=== PATIENT | female | born 1945 | race African-American/Black ===

== ENCOUNTER 2018-11-03 00:32 | Emergency (ER) | payer OTHER ==
[~2018-11-03] VITALS: Ht 165.1 cm; Wt 120.2 kg
[2018-11-03] MEDS ORDERED: CARVEDILOL12.5 MG PO (01:09)
[2018-11-03] MEDS ORDERED: ZOLOFT50 MG PO (01:09)
[2018-11-03] MEDS ORDERED: NYSTATIN1 EA10 TOP (01:11)
[2018-11-03] MEDS ORDERED: CLONIDINE0.1 PO (01:12)
[2018-11-03] MEDS ORDERED: LIPITOR40 MG PO (01:12)
[2018-11-03] MEDS ORDERED: AMLODIPINE BESY10 MG PO (01:13)
[2018-11-03] MEDS ORDERED: LASIX 40 MG TAB40 M2 PO (01:13)
[2018-11-03] MEDS ORDERED: PROZAC10 MG PO (01:14)
[2018-11-03] MEDS ORDERED: LISINOPRIL40 MG PO (01:14)
[2018-11-03 01:15] LABS: ABSOLUTE NEUTROPHILS 2.9 thou/uL (1.4-8.2); BASOPHILS 1.2 % (0.0-2.0); HEMATOCRIT 32.8 % (37.0-47.0); HEMOGLOBIN 10.4 gm/dL (12.0-15.0); LYMPHOCYTES 29.9 % (24.0-44.0); MCH 20.9 pg (26.0-34.0); MCHC 31.6 g/dL (28.0-37.0); MONOCYTES 9.2 % (1.0-8.0); PLATELET COUNT 304 thou/uL (150-400); POLYS 56.7 % (36.0-66.0); RBC 4.97 mil/uL (4.20-5.00); RDW 18.1 % (10.5-14.5); WBC 5.1 thou/uL (4.0-11.0)
[2018-11-03] MEDS ORDERED: ARIMIDEX PO (01:15)
[2018-11-03 01:28] LABS: ANION GAP 11 mmol/L (7-16); BUN 12 mg/dL (7-18); CALCIUM 8.9 mg/dL (8.5-10.1); CHLORIDE 102 mmol/L (98-107); CO2 28 mmol/L (21-32); CREATININE 1.1 mg/dL (0.6-1.0); GLUCOSE 115 mg/dL (74-106); POTASSIUM 3.3 mmol/L (3.5-5.1); SODIUM 141 mmol/L (136-145)
[2018-11-03 01:37] LABS: TROPONIN-I <0.06 ng/mL (<0.06)
[2018-11-03 01:57] LABS: ANISOCYTOSIS 2+; HYPOCHROMASIA 3+; MICROCYTES 3+
[2018-11-03 04:53] VITALS: BP 109/71
--- NOTE | 2018-11-03 10:42 | EKG ---
[place] [address] [facility] [employer] [place] [address] ELECTROCARDIOGRAM REPORT Name: INDIA MARTINEZ Room #: DEP [facility]#: [id number] Admission: 11/03/18 Attend Phys: Discharge: 11/03/18 Date of : 45 Report #: [id number] THIS REPORT FOR: //name// [facility] ED Test Date: 2018-11-03 Test Time: 00:44:26 Pat Name: INDIA MARTINEZ Department: Room: Gender: F Shift Manager: parker : 1945 Requested By: Chaitanya Nugent Order Number: [id number] MD: Vivek Bal Measurements Intervals [place] Rate: 88 P: ID: QRS: -42 QRSD: 155 T: -20 QT: 425 QTc: 515 Interpretive Statements Atrial fibrillation Right bundle branch block Inferior infarct, age indeterminate No previous ECG available for comparison Electronically Signed On 11-03-2018 10:41:58 CDT by Vivek Bal [email or web address] <ELECTRONICALLY SIGNED> By: Vivek Bal MD, [facility] 11/03/18 1041 0044 0044 Vivek Bal MD, FACC /EPI
== END 2018-11-03 04:54 | disposition home or self-care (01) ==
LOC: ER 00:32
PROVIDERS: Emergency Medicine
DX: I71.2 Thoracic aortic aneurysm, without rupture (principal); I10 Essential (primary) hypertension; E78.00 Pure hypercholesterolemia, unspecified; E66.9 Obesity, unspecified; Z90.11 Acquired absence of right breast and nipple; Z68.41 Body mass index [BMI] 40.0-44.9, adult; Z85.3 Personal history of malignant neoplasm of breast

== ENCOUNTER 2019-01-15 12:30 | Inpatient (IN) | payer OTHER ==
[~2019-01-15] VITALS: Ht 160 cm; Wt 116.2 kg
[~2019-01-15 12:30] MED LIST: AMLODIPINE BESY10 MG PO; ARIMIDEX PO; CARVEDILOL12.5 MG PO; CLONIDINE0.1 PO; LASIX 40 MG TAB40 M2 PO; LIPITOR40 MG PO; LISINOPRIL40 MG PO; NYSTATIN1 EA10 TOP; PROZAC10 MG PO; ZOLOFT50 MG PO
[2019-01-15 12:31] VITALS: BP 128/86
[2019-01-15 13:12] LABS: ABSOLUTE NEUTROPHILS 4.2 thou/uL (1.4-8.2); BASOPHILS 0.9 % (0.0-2.0); EOSINOPHILS 1.7 % (0.0-3.0); HEMATOCRIT 35.6 % (37.0-47.0); HEMOGLOBIN 11.2 gm/dL (12.0-15.0); LYMPHOCYTES 19.6 % (24.0-44.0); MCH 21.2 pg (26.0-34.0); MCHC 31.4 g/dL (28.0-37.0); MCV 67.3 fL (80.0-100.0); MONOCYTES 8.7 % (1.0-8.0); PLATELET COUNT 333 thou/uL (150-400); POLYS 69.1 % (36.0-66.0); RDW 20.6 % (10.5-14.5); WBC 6.1 thou/uL (4.0-11.0)
[2019-01-15 13:26] LABS: ANION GAP 9 mmol/L (7-16); BUN 21 mg/dL (7-18); CALCIUM 8.5 mg/dL (8.5-10.1); CHLORIDE 103 mmol/L (98-107); CO2 28 mmol/L (21-32); CREATININE 1.1 mg/dL (0.6-1.0); GLUCOSE 117 mg/dL (74-106); SODIUM 140 mmol/L (136-145)
[2019-01-15 13:37] LABS: ALBUMIN 3.3 g/dL (3.4-5.0); SGOT 20 U/L (15-37); SGPT 26 U/L (30-65); TOTAL BILIRUBIN 0.5 mg/dL (<0.1-1.0); TOTAL PROTEIN 7.6 g/dL (6.4-8.2); TROPONIN-I <0.06 ng/mL (<0.06)
[2019-01-15 13:58] LABS: INR 1.1; PROTIME 11.3 Seconds (9.3-11.4)
[2019-01-15 14:21] LABS: ANISOCYTOSIS 2+
[2019-01-15 15:19] VITALS: BP 141/100
[2019-01-15 15:26] LABS: URINE BILIRUBIN NEGATIVE (Negative); URINE BLOOD NEGATIVE (Negative); URINE CLARITY CLEAR; URINE COLOR YELLOW; URINE GLUCOSE-RANDOM* NEGATIVE (Negative); URINE KETONES NEGATIVE (Negative); URINE LEUKOCYTES-REFLEX NEGATIVE (Negative); URINE NITRITE-REFLEX NEGATIVE (Negative); URINE PROTEIN (DIPSTICK) NEGATIVE (Negative); URINE SPECIFIC GRAVITY <= 1.005 (1.005-1.035); URINE UROBILINOGEN 0.2 E.U./dl (0.2-1.0)
[2019-01-15 15:32] LABS: AMP/METHAMP Negative (Negative); BARBITURATES Negative (Negative); BENZODIAZEPINES Negative (Negative); COCAINE Negative (Negative); METHADONE Negative (Negative); OPIATES Negative (Negative); PCP Negative (Negative)
[2019-01-15 15:46] VITALS: BP 152/90
[2019-01-15 16:00] VITALS: BP 157/11
--- NOTE | 2019-01-15 17:02 | NUR ---
ASSESSMENTS AND INTERVENTIONS DOCCUMENTED. PATIENT ARRIVED TO UNIT AT 1601 PER ED NURSE. PATIENT SETTLED INTO BED. PATIENT VERY PLEASANT AND ALERT AND ORIENTED X4. PATIENT HAVING DULL ABDOMINAL PAIN. PATIENT HAVING HIGH BP. DR. BETH OCONNELL. NO ANSWER. PATIENT HAS FAMILY AT BEDSIDE. RN WILL CONTINUE TO FOLLOW PLAN OF CARE. THE PLAN OF CARE IS TO MONITOR CARDIAC FUNCTION AND RESPIRATORY STATUS.
[2019-01-15 20:53] VITALS: BP 149/97
[2019-01-16 03:47] VITALS: BP 159/108
[2019-01-16 05:28] LABS: ANION GAP 7 mmol/L (7-16); BUN 15 mg/dL (7-18); CALCIUM 9.4 mg/dL (8.5-10.1); CHLORIDE 102 mmol/L (98-107); CO2 29 mmol/L (21-32); CREATININE 1.1 mg/dL (0.6-1.0); GLUCOSE 106 mg/dL (74-106); MAGNESIUM 1.5 mg/dL (1.8-2.4); SODIUM 138 mmol/L (136-145); TROPONIN-I <0.06 ng/mL (<0.06)
[2019-01-16 05:50] LABS: POTASSIUM 4.1 mmol/L (3.5-5.1)
[2019-01-16 06:00] LABS: HEMATOCRIT 37.6 % (37.0-47.0); HEMOGLOBIN 11.5 gm/dL (12.0-15.0); MCH 20.9 pg (26.0-34.0); MCHC 30.7 g/dL (28.0-37.0); MCV 68.2 fL (80.0-100.0); PLATELET COUNT 338 thou/uL (150-400); RBC 5.51 mil/uL (4.20-5.00); RDW 20.7 % (10.5-14.5); WBC 6.5 thou/uL (4.0-11.0)
[2019-01-16 07:10] VITALS: BP 145/111
--- NOTE | 2019-01-16 08:08 | EKG ---
[address] [place] [address] ELECTROCARDIOGRAM REPORT Name: INDIA MARTINEZ Room #: 210-P ADM IN M.R.#: [id number] Admission: 01/15/19 Attend Phys: Marce Nieves MD Discharge: Date of : 45 Report #: [id number] THIS REPORT FOR: //name// [facility] ED Test Date: 2019-01-15 Test Time: 12:50:46 Pat Name: INDIA MARTINEZ Department: Room: 210 Gender: F Chief Crna: ANTONI : 1945 Requested By: Zain Maldonado Order Number: [id number] MD: Vivek Bal Measurements Intervals [place] Rate: 90 P: DC: QRS: -32 QRSD: 158 T: 33 QT: 426 QTc: 522 Interpretive Statements Atrial fibrillation Right bundle branch block Inferior infarct, old Compared to ECG 11/03/2018 00:44:26 No significant changes Electronically Signed On 01-16-2019 8:08:16 CDT by Vivek Bal [email or web address] <ELECTRONICALLY SIGNED> By: Vivek Bal MD, [facility] 01/16/19 0808 1250 1250 Vivek Bal MD, [facility] /EPI
--- NOTE | 2019-01-16 09:52 | 2DMMODE ---
[facility] [place] [address] 2 D/M-MODE ECHOCARDIOGRAM Name: INDIA MARTINEZ JESUS Room #: 210-P ADM IN M.R.#: [id number] Admission: 01/15/19 Attend Phys: Marce Nieves, Discharge: Date of : 45 Report #: [id number] THIS REPORT FOR: //name// APPROVED REPORT Study performed: 01/16/2019 08:17:32 EXAM: Comprehensive 2D, Doppler, and color-flow Echocardiogram Patient Location: Echo lab Room #: 210 Status: routine BSA: 2.18 HR: 120 bpm BP: 145/111 mmHg Rhythm: Atrial Fibrillation/RBBB Other Information Study Quality: Good Indications Short of breath, racing heart, chest heaviness, Elevated BNP, Afib, RBBB, HTN. 2D Dimensions RVDd: 39.22 mm IVSd: 10.21 (7-11mm) LVOT Diam: 19.03 (18-24mm) LVDd: 60.95 mm PWd: 10.54 (7-11mm) Ascending Ao: 37.08 (22-36mm) LVDs: 50.08 (25-40mm) Aortic Root: 33.80 mm Volumes Left Atrial Volume (Systole) Single Plane 4CH: 89.32 mL Single Plane 2CH: 106.04 mL LA ESV Index: 47.00 mL/m2 Aortic Valve AoV Peak Jung.: 1.32 m/s AO Peak Gr.: 7.07 mmHg LVOT Max P.00 mmHg LVOT Max V: 0.69 m/s MARYLU Vmax: 1.49 cm2 Mitral Valve MV Decel. Time: 175.97 ms MV E Max Jung.: 1.34 m/s [facility] [address] [place] [address] 2 D/M-MODE ECHOCARDIOGRAM Name: INDIA MARTINEZ [place] Room #: 210[facility] ..#: [id number] Admission: 01/15/19 Attend Phys: Marce Nieves, Discharge: Date of : 45 Report #: [id number] Pulmonary Valve PV Peak Jung.: 0.86 m/s PV Peak Gr.: 2.94 mmHg Tricuspid Valve TR Peak Jung.: 3.20 m/s RAP Estimate: 10.00 mmHg TR Peak Gr.: 40.00 mmHg PA Pressure: 50.00 mmHg Left Ventricle Left ventricle is moderately dilated. There is normal left ventricular wall thickness. Left ventricular systolic function is moderately decreased. Hypokinesis of basal inferoseptum and anterior danielson LVEF is 30-35%. This study is not technically sufficient to allow evaluation of the LV diastolic function due to atrial fibrillation. Right Ventricle The right ventricle is normal size. Right ventricle is mildly hypokinetic. Atria Left atrium is severely dilated. Right atrium is severely dilated. Aortic Valve The aortic valve is mildly calcified, trileaflet. Trace aortic regurgitation. There is no aortic valvular stenosis. Mitral Valve Mitral valve leaflets are mildly thickened. Mild mitral annular calcification. Moderate mitral regurgitation. Tricuspid Valve The tricuspid valve is normal in structure. Moderate tricuspid regurgitation. Estimated PAP is 50mmHg. Pulmonic Valve The pulmonary valve is normal in structure. Mild pulmonic regurgitation. Great Vessels The aortic root is normal in size. The ascending aorta is normal in size. IVC is normal in size and collapses <50% with inspiration. [facility] [place] [address] 2 D/M-MODE ECHOCARDIOGRAM Name: INDIA MARTINEZ [place] Room #: 210-P ADM IN M.R.#: [id number] Admission: 01/15/19 Attend Phys: Marce Nieves, Discharge: Date of : 45 Report #: [id number] Pericardium Trace pericardial effusion <Conclusion> Left ventricular systolic function is moderately decreased. Hypokinesis of basal inferoseptum and anterior danielson LVEF is 30-35%. Both atria are severely dilated. The aortic valve is mildly calcified, trileaflet. Trace aortic regurgitation, no stenosis. Mitral valve leaflets are mildly thickened. Mild mitral annular calcification. Moderate mitral regurgitation. Moderate tricuspid regurgitation. Estimated pulmonary artery pressure of 50mmHg. Trace pericardial effusion <ELECTRONICALLY SIGNED> By: Vivek Bal MD, [facility] 01/16/1952 1 Vivek Bal MD, [facility] /INF
[2019-01-16 10:01] LABS: ANISOCYTOSIS 1+; HYPOCHROMASIA 1+; MICROCYTES 2+; PLATELET ESTIMATE NORMAL; POLYCHROMASIA 1+
--- NOTE | 2019-01-16 11:08 | NUR ---
DOWN FOR TESTS THIS A.M. NO C/O UPON RETURN. AAO. UP TO CHAIR FOR BREAKFAST. UP TO BR FOR TOWEL BATH. SOB AND TACHYCARDIA W/ACTIVITY. SR/ST PER TELE. HYDRALAZINE 10MG IV ADMIN FOR BP 145/111. ASSISTED TO BSC FOR BM. WILL CONTINUE TO MONITOR.
[2019-01-16 12:00] VITALS: BP 150/111
[2019-01-16 20:31] VITALS: BP 161/89
[2019-01-17 03:43] VITALS: BP 142/92
--- NOTE | 2019-01-17 05:31 | NUR ---
PATIENTS CARES WERE ASSUMED AT SHIFT CHANGE. PATIENT WAS ASSESSED AND MEDS WERE PASSED. HORLY ROUNDING WAS DONE. PHARMACY SCHEDULED A 0100 MG+ IVPB THAT WAS NOT HUNG TILL APPROX 0430 DUE TO PATIENTS REST TIME NEEDED TO NOT BE INTERFERED WITH. MG+ was given an hour before lab showed . PATIENT CONTINUES TO NEED SEVERAL HOT BLANKETS PER SHIFT DUE TO HEATER MELFUNCTINING. THE BED IS IN A LOW AND LOCKED POSITION.
[2019-01-17 05:41] LABS: CALCIUM 9.2 mg/dL (8.5-10.1); CREATININE 0.8 mg/dL (0.6-1.0); MAGNESIUM 2.7 mg/dL (1.8-2.4); POTASSIUM 3.8 mmol/L (3.5-5.1)
[2019-01-17 06:36] LABS: % SATURATION 11 % (20-39); IRON 37 ug/dL (50-170); TIBC 331 ug/dL (250-450)
[2019-01-17 06:48] LABS: ABSOLUTE RETIC COUNT 0.1044 10^6/uL; OBSERVED RETIC COUNT 1.9 % (0.6-2.6)
[2019-01-17 07:26] VITALS: BP 163/107
--- NOTE | 2019-01-17 08:41 | EKG ---
[place] [address] [facility] [place] [address] ELECTROCARDIOGRAM REPORT Name: INDIA MARTINEZ Room #: 210-P ADM IN M.R.#: [id number] Admission: 01/15/19 Attend Phys: Marce Nieves MD Discharge: Date of : 45 Report #: [id number] THIS REPORT FOR: //name// [facility] Test Date: 2019-01-16 Test Time: 15:50:19 Pat Name: INDIA MARTINEZ Department: Room: 210 P Gender: F Steam Roller Operator: Suzy EDGAR : 1945 Requested By: Elena Paris Order Number: [id number] MD: Vivek Bal Measurements Intervals [place] Rate: 122 P: MO: QRS: -47 QRSD: 149 T: 27 QT: 345 QTc: 492 Interpretive Statements Atrial fibrillation Right bundle branch block Inferior infarct, old Compared to ECG 01/15/2019 12:50:46 No significant changes Electronically Signed On 01-17-2019 8:41:28 CDT by Vivek Bal [email or web address] <ELECTRONICALLY SIGNED> By: Vivek Bal MD, [facility] 01/17/19 0841 49 49 Vivek Bal MD, [facility] /EPI
[2019-01-17 11:16] VITALS: BP 121/91
--- NOTE | 2019-01-17 14:39 | NUR ---
FA[place]ED [place]ERR[place] [facility] SPOKE WITH COLTON IN ADM SHE RECEIVED REFERRAL AND CAN ACCEPT. ANTICIPATE DC TOMORROW 01/18. DP TO FOLLOW.
[2019-01-17 16:21] VITALS: BP 139/95
--- NOTE | 2019-01-17 17:04 | NUR ---
ASSUMED CARE PT AT SHIFT CHANGE. ASSESSMENTS CHARTED. MEDS GIVEN PER MAY. PT ALERT AND ORIENTED, VSS, O2 SATS WNL ON 2L O2. DAUGHTER AT BEDSIDE THROUGHOUT SHIFT ASSISTING WITH NEEDS. UP X1 ASSIST TOLERATING WELL. NO C/O PAIN, SOA. DENYING NEEDS AT THIS TIME. WILL CONT TO MONITOR.
--- NOTE | 2019-01-17 17:28 | NUR ---
CM assessment completed at bedside with pt and dtr Saray. Pt lives with her dtr Charles and her son in law. She is home alone during the day and normally walks with a rolator walker. She has a cane that she uses some as well. She is a&ox4 and reports feeling weaker than normal. Therapy eval reviewed and rehab recommendations discussed. She has 10 steps up to the main level of their home. Her pcp is Dr. Gagandeep Lopez at the [facility]. Pt open to Snf referral and hh. Denied preference other than close to home and in network with her ins plan. Listings reveiwed. SNF referral sent to [facility] of by the dc finished goods planner. [facility] of can accept and submitted auth for possible dc tomorrow or sat. [facility] would be an option should the pt decide to try and go directly home. Will f/u in the am after her morning therapy to confirm their desire. Cm role reviewed.
--- NOTE | 2019-01-17 17:41 | EKG ---
[address] [employer] [place] [address] ELECTROCARDIOGRAM REPORT Name: INDIA MARTINEZ Room #: 210-P ADM IN M.R.#: [id number] Admission: 01/15/19 Attend Phys: Marce Nieves MD Discharge: Date of : 45 Report #: [id number] THIS REPORT FOR: //name// [facility] Test Date: 2019-01-17 Test Time: 09:02:10 Pat Name: INDIA MARTINEZ Department: Room: 210 P Gender: F Rotary Kiln Operator: LENNIE : 1945 Requested By: Elena Paris Order Number: [id number] MD: Vivek Bal Measurements Intervals [place] Rate: 105 P: IN: QRS: -50 QRSD: 152 T: 33 QT: 368 QTc: 487 Interpretive Statements Atrial fibrillation Right bundle branch block Compared to ECG 01/16/2019 15:50:19 Heart rate has slowed Electronically Signed On 01-17-2019 17:41:26 CDT by Vivek Bla [email or web address] <ELECTRONICALLY SIGNED> By: Vivek Bal MD, [facility] 01/17/19 1741 1 1 Vivek Bal MD, FAC /EPI
[2019-01-17 20:40] VITALS: BP 131/82
[2019-01-18] VITALS (7 sets, daily range): BP systolic 111–144; BP diastolic 83–111
--- NOTE | 2019-01-18 07:02 | NUR ---
PATIENTS CARE WAS ASSUMED AT SHIFT CHANGE. PATIENT WAS ASSESSED AND MEDS WERE PASSED. HOURLY ROUNDING WAS DONE. PATIENT WAS ABLE TO HAVE A BM THIS MORNING. PATIENT VOIDS PER BSC. BED ALARM IS ON. THE BED IS IN A LOW AND LOCKED POSITION.
[2019-01-18] MEDS ORDERED: NABUMETONE 500500 M1 PO (13:10)
[2019-01-18] MEDS ORDERED: BENAZEPRIL HCL20 MG PO (13:10)
[2019-01-18] MEDS ORDERED: ACETAMINOPHEN325 M1 PO (13:10)
[2019-01-18] MEDS ORDERED: XARELTO15 MG PO (13:10)
[2019-01-18] MEDS ORDERED: KLOR-CON 1010 MEQ PO (13:10)
[2019-01-18] MEDS ORDERED: XARELTO20 MG PO (13:10)
[2019-01-18] MEDS ORDERED: CARVEDILOL25 MG PO (13:10)
[2019-01-18] MEDS ORDERED: LIDOPATCH1 EACH TRANSDERM (13:10)
[2019-01-18] MEDS ORDERED: COLACE 100 MG100 MG PO (13:10)
--- NOTE | 2019-01-18 13:36 | NUR ---
FA[facility]ED REFERRAL TO [facility] SPOKE WITH CATE IN ADM SHE REFERRAL AND WILL REVIEW. FAXED REFERRAL TO [facility] SPOKE WITH KRITSIN IN INTAKE SHE RECEIVED REFERRAL AND CAN ACCEPT IF PT DISCHARGES TO HOME NOT SKILLED.
--- NOTE | 2019-01-18 15:16 | NUR ---
[facility] indicated they are out of network with ins when they attempted to start auth. DC planner intern start referral to [facility] and [facility] pending family decision. DC recommendations and options discussed with the pt and dtr at bedside. Pt prefers to go home with HH. She is agreeable to [facility] and they can accept her ins plan. Referral to [facility] cancelled. Sr Blue Book given to family for private duty resources. Dc planner intern to fax final orders and confirm soc date with [facility]. Pt has a rolator walker at home and therapy is recommending a jr FWW. Script obtained from the attending and referral called and faxed to Jarrett crump to her room this afternoon prior to family taking her home. No other needs indicated. Case closed.
--- NOTE | 2019-01-18 17:07 | NUR ---
PT CARE ASSUMED APPROX 0700. PT ASSESSMENTS CHARTED. DENIES PAIN AND SOA. VSS. UP WITH WALKER AND SBA. DAUGHTER AT BEDSIDE MOST OF DAY. PT DISCHARGING AT THIS TIME. AMBER DELIVERED WALKER AND THIS NURSE REVIEWED DISCHARGE PAPERWORK WITH PT AND DAUGHTER. AFTER MULTIPLE QUESTIONS AND CONCERNS REPORTED THEY ULTIMATELY DENIED QUESTIONS AND CONCERNS REGARDING DISCHARGE PAPERWORK AND POST HOSPITAL CARES. IV OUT, TELE BOX OFF. PT DESIRED TO EAT DINNER PRIOR TO LEAVING. WILL ESCORT PT OUT TIMELY.
--- NOTE | 2019-01-20 11:15 | EKG ---
[address] [address] ELECTROCARDIOGRAM REPORT Name: INDIA MARTINEZ Room #: 210- DIS IN M.R.#: [id number] Admission: 01/15/19 Attend Phys: Marce Nieves MD Discharge: 01/18/19 Date of : 45 Report #: [id number] THIS REPORT FOR: //name// [facility] Test Date: 2019-01-18 Test Time: 07:52:20 Pat Name: INDIA MARTINEZ Department: Room: 210 P Gender: F Manager Product Management: Jay KU : 1945 Requested By: Elena Paris Order Number: [id number] MD: Riky Michelle Measurements Intervals [place] Rate: 105 P: IN: QRS: -40 QRSD: 152 T: -66 QT: 359 QTc: 475 Interpretive Statements Atrial fibrillation RBBB and LAFB Compared to ECG 01/17/2019 09:02:10 Left anterior fascicular block now present Electronically Signed On 01-20-2019 11:15:05 HIGH SCHOOL SOCIAL SCIENCE TEACHER by Riky Michelle [email or web address] <ELECTRONICALLY SIGNED> By: Riky Michelle MD 01/20/19 1115 0752 0752 Riky Michelle MD /EPI
== END 2019-01-18 17:45 | disposition home health service (06) | DRG 175 ==
LOC: ER 12:30 → 2N 14:25 → EROBS 14:25 → 2N 15:35 → ENTRNSPT 01-18 17:29 → 2N 01-18 17:45
PROVIDERS: Emergency Medicine; Nurse Practitioner; Nurse Practitioner Adult Health; ADMIT Internal Medicine
DX: I26.99 Other pulmonary embolism without acute cor pulmonale (principal); I50.23 Acute on chronic systolic (congestive) heart failure; I11.0 Hypertensive heart disease with heart failure; Z90.11 Acquired absence of right breast and nipple; I48.91 Unspecified atrial fibrillation; N19 Unspecified kidney failure; E83.42 Hypomagnesemia; D50.9 Iron deficiency anemia, unspecified; F03.90 Unspecified dementia, unspecified severity, without behavioral disturbance, psychotic disturbance, mood disturbance, and anxiety; I08.1 Rheumatic disorders of both mitral and tricuspid valves; F32.9 Major depressive disorder, single episode, unspecified; I25.10 Atherosclerotic heart disease of native coronary artery without angina pectoris; I71.2 Thoracic aortic aneurysm, without rupture; E78.5 Hyperlipidemia, unspecified; E87.6 Hypokalemia; D64.9 Anemia, unspecified; Z79.01 Long term (current) use of anticoagulants; Z85.3 Personal history of malignant neoplasm of breast; Z86.718 Personal history of other venous thrombosis and embolism; Z86.711 Personal history of pulmonary embolism; Z87.891 Personal history of nicotine dependence
CPT/HCPCS: 10081

== ENCOUNTER 2019-01-29 12:43 | Emergency (ER) | payer OTHER ==
[~2019-01-29] VITALS: Ht 160 cm; Wt 118.4 kg
[~2019-01-29 12:43] MED LIST changes: +ACETAMINOPHEN325 M1 PO; +BENAZEPRIL HCL20 MG PO; +CARVEDILOL25 MG PO; +COLACE 100 MG100 MG PO; +KLOR-CON 1010 MEQ PO; +LIDOPATCH1 EACH TRANSDERM; +NABUMETONE 500500 M1 PO; +XARELTO15 MG PO; +XARELTO20 MG PO
[2019-01-29 15:02] LABS: ABSOLUTE NEUTROPHILS 3.5 thou/uL (1.4-8.2); HEMATOCRIT 35.6 % (37.0-47.0); HEMOGLOBIN 11.2 gm/dL (12.0-15.0); LYMPHOCYTES 25.6 % (24.0-44.0); MCH 21.6 pg (26.0-34.0); MCHC 31.5 g/dL (28.0-37.0); MCV 68.5 fL (80.0-100.0); MONOCYTES 8.1 % (1.0-8.0); PLATELET COUNT 330 thou/uL (150-400); POLYS 62.3 % (36.0-66.0); RBC 5.19 mil/uL (4.20-5.00); RDW 20.4 % (10.5-14.5); WBC 5.6 thou/uL (4.0-11.0)
[2019-01-29 15:12] LABS: ANION GAP 10 mmol/L (7-16); BUN 22 mg/dL (7-18); CALCIUM 9.5 mg/dL (8.5-10.1); CHLORIDE 103 mmol/L (98-107); CO2 27 mmol/L (21-32); CREATININE 1.4 mg/dL (0.6-1.0); GLUCOSE 112 mg/dL (74-106); SODIUM 140 mmol/L (136-145)
[2019-01-29 15:23] LABS: ALBUMIN 3.2 g/dL (3.4-5.0); LIPASE 107 U/L (73-393); MAGNESIUM 1.6 mg/dL (1.8-2.4); SGOT 26 U/L (15-37); SGPT 27 U/L (30-65); TOTAL BILIRUBIN 0.5 mg/dL (<0.1-1.0); TOTAL PROTEIN 7.4 g/dL (6.4-8.2); TROPONIN-I <0.06 ng/mL (<0.06)
[2019-01-29 15:24] LABS: APTT 39.5 Seconds (24.5-32.8); INR 1.5; PROTIME 16.1 Seconds (9.3-11.4)
[2019-01-29 15:57] LABS: ANISOCYTOSIS 2+; MICROCYTES 3+; PLATELET ESTIMATE NORMAL
[2019-01-29] MEDS ORDERED: TYLENOL WITH CO1 TA1 PO (16:06)
[2019-01-29] MEDS ORDERED: VENTOLIN HFA 1818 GM INH (16:06)
[2019-01-29] MEDS ORDERED: PRILOSEC OTC20 MG PO (16:07)
[2019-01-29 16:38] LABS: URINE BILIRUBIN NEGATIVE (Negative); URINE BLOOD NEGATIVE (Negative); URINE CLARITY CLEAR; URINE COLOR YELLOW; URINE GLUCOSE-RANDOM* NEGATIVE (Negative); URINE KETONES NEGATIVE (Negative); URINE LEUKOCYTES-REFLEX NEGATIVE (Negative); URINE NITRITE-REFLEX NEGATIVE (Negative); URINE PROTEIN (DIPSTICK) 1+ (Negative); URINE SPECIFIC GRAVITY 1.015 (1.005-1.035); URINE UROBILINOGEN 0.2 E.U./dl (0.2-1.0)
[2019-01-29 16:51] LABS: CASTS None Seen /LPF (None Seen); CRYSTALS None Seen /LPF (None Seen); SQUAMOUS 4-10 Moderate /LPF (0-3)
[2019-01-29 16:52] LABS: URINE RBC None Seen /HPF (0-2); URINE WBC-REFLEX None Seen /HPF (0-5)
[2019-01-29] MEDS ORDERED: TESSALON PERLE100 MG PO (17:06)
[2019-01-29 17:11] VITALS: BP 148/102
--- NOTE | 2019-01-31 16:40 | EKG ---
[place] [address] [place] [address] ELECTROCARDIOGRAM REPORT Name: INDIA MARTINEZ Room #: DEP [facility]#: [id number] Admission: 01/29/19 Attend Phys: Discharge: 01/29/19 Date of : 45 Report #: [id number] THIS REPORT FOR: //name// [facility] ED Test Date: 2019-01-29 Test Time: 13:02:20 Pat Name: INDIA MARTINEZ Department: Room: Gender: F Yard Inspector: LOGAN : 1945 Requested By: Zain Maldonado Order Number: [id number] MD: Vivek Bal Measurements Intervals [place] Rate: 100 P: ME: QRS: -49 QRSD: 145 T: 18 QT: 345 QTc: 445 Interpretive Statements Atrial fibrillation Ventricular premature complex Right bundle branch block Inferior infarct, age indeterminate Compared to ECG 01/18/2019 07:52:20 Ventricular premature complex(es) now present Electronically Signed On 01-31-2019 16:40:07 OUTPATIENT THERAPIST by Vivek Bal [email or web address] <ELECTRONICALLY SIGNED> By: Vivek aBl MD, [facility] 01/31/19 [facility] 1302 1302 Vivek Bal MD, [facility] /EPI
== END 2019-01-29 17:11 | disposition home or self-care (01) ==
LOC: ER 12:43
PROVIDERS: Emergency Medicine
DX: R06.00 Dyspnea, unspecified (principal); R10.10 Upper abdominal pain, unspecified; R74.8 Abnormal levels of other serum enzymes; G89.29 Other chronic pain; M25.552 Pain in left hip; I11.0 Hypertensive heart disease with heart failure; I50.9 Heart failure, unspecified; M19.90 Unspecified osteoarthritis, unspecified site; E78.5 Hyperlipidemia, unspecified; Z90.11 Acquired absence of right breast and nipple; Z87.891 Personal history of nicotine dependence; Z86.711 Personal history of pulmonary embolism

== ENCOUNTER 2019-02-01 14:41 | Inpatient (IN) | payer OTHER ==
[~2019-02-01] VITALS: Ht 160 cm; Wt 118.0 kg
[~2019-02-01 14:41] MED LIST changes: +PRILOSEC OTC20 MG PO; +TESSALON PERLE100 MG PO; +TYLENOL WITH CO1 TA1 PO; +VENTOLIN HFA 1818 GM INH
[2019-02-01 14:42] VITALS: BP 153/106
[2019-02-01 15:28] LABS: ABSOLUTE NEUTROPHILS 4.2 thou/uL (1.4-8.2); BASOPHILS 0.7 % (0.0-2.0); EOSINOPHILS 1.4 % (0.0-3.0); HEMATOCRIT 35.1 % (37.0-47.0); HEMOGLOBIN 11.1 gm/dL (12.0-15.0); LYMPHOCYTES 18.8 % (24.0-44.0); MCH 21.6 pg (26.0-34.0); MCHC 31.6 g/dL (28.0-37.0); MCV 68.5 fL (80.0-100.0); PLATELET COUNT 292 thou/uL (150-400); POLYS 68.1 % (36.0-66.0); RBC 5.13 mil/uL (4.20-5.00); RDW 20.7 % (10.5-14.5); WBC 6.2 thou/uL (4.0-11.0)
[2019-02-01 15:38] LABS: CALCIUM 9.3 mg/dL (8.5-10.1); CREATININE 1.9 mg/dL (0.6-1.0); POTASSIUM 3.6 mmol/L (3.5-5.1)
[2019-02-01 15:44] LABS: ALBUMIN 3.2 g/dL (3.4-5.0); TOTAL BILIRUBIN 0.8 mg/dL (<0.1-1.0); TOTAL PROTEIN 7.2 g/dL (6.4-8.2)
--- NOTE | 2019-02-01 16:23 | EKG ---
[place] [address] [facility] [place] [address] ELECTROCARDIOGRAM REPORT Name: INDIA MARTINEZ Room #: [facility] [id number] Admission: 02/01/19 Attend Phys: Discharge: Date of : 45 Report #: [id number] THIS REPORT FOR: //name// [facility] ED Test Date: 2019-02-01 Test Time: 14:46:47 Pat Name: INDIA MARTINEZ Department: Room: Gender: F Bisque Finisher: WG : 1945 Requested By: Romario Bond Order Number: [id number] MD: Vivek Bal Measurements Intervals [place] Rate: 112 P: MD: QRS: -26 QRSD: 154 T: 7 QT: 358 QTc: 489 Interpretive Statements Atrial fibrillation Right bundle branch block Inferior infarct, old Compared to ECG 01/29/2019 13:02:20 No significant change was found Electronically Signed On 02-01-2019 16:23:27 CONFIGURATION SPECIALIST by Vivek Bal [email or web address] <ELECTRONICALLY SIGNED> By: Vivek Bal MD, [facility] 02/01/19 1623 1446 1446 Vivek Bal MD, [facility] /EPI
[2019-02-01 17:38] VITALS: BP 130/100
[2019-02-01 17:41] VITALS: BP 140/92
[2019-02-01 18:15] VITALS: BP 160/121
--- NOTE | 2019-02-01 19:24 | NUR ---
NEW ADMIT FOR SOB, ABD AND CHEST PAIN, AFIB RVR, EDEMA, ELEBATED CREATINE.A/OX3 WITH FORGETFULNESS, CHRONIC BACK PAIN, USES WALKER AT HOME. LIVES WITH DAUGHTER. ARRIVED FROM ED WITH MARIANGEL ALMONTE DRIP AT 15ML/HR, LAST BM 01/31/19. ORRIENTED TO ROOM, FALL PRECAUTION IN PLACE. ADMISSION ASSESMENT AND HISTORY COMPLETED. FAMILY BEDSIDE.
[2019-02-01 19:27] VITALS: BP 155/107
[2019-02-01] MEDS ORDERED: LIPITOR40 MG PO (20:28)
[2019-02-01 22:46] LABS: ANISOCYTOSIS 2+; BURR CELLS 1+; HYPOCHROMASIA 2+; MICROCYTES 2+
[2019-02-01 22:47] LABS: POLYCHROMASIA OCCASIONAL
[2019-02-02] VITALS (7 sets, daily range): BP systolic 116–157; BP diastolic 83–108
[2019-02-02 04:50] LABS: ANION GAP 11 mmol/L (7-16); BUN 30 mg/dL (7-18); CALCIUM 8.5 mg/dL (8.5-10.1); CHLORIDE 101 mmol/L (98-107); CO2 26 mmol/L (21-32); CREATININE 1.6 mg/dL (0.6-1.0); GLUCOSE 107 mg/dL (74-106); POTASSIUM 3.4 mmol/L (3.5-5.1); SODIUM 138 mmol/L (136-145); TROPONIN-I <0.06 ng/mL (<0.06)
--- NOTE | 2019-02-02 05:53 | NUR ---
ASSUME CARE 1900. PT/VITALS STABLE. INTERMITTENT BACK PAIN NOTED WITH MODERATE RELIEF FROM TYLENOL/CODEINE FOR RELIEF. REST NOTED WITH PT RESTING BETTER WHEN SITTING IN CHAIR. ASSESSMENT CHARETED. PROGRESSING MODERATELY WITH POC. PT IS STILL AFIB ON MONITOR BUT RATE IS CONTROLLED. ON CARDIZEM DRIP TO TITRATE FOR HR LESS THAN 100 OR DROP IN BP. PLAN IS TO CONTINUE TO MONITOR PT'S RATE AND RHYTHM AND WATCHKIDNEY FUNCTION WELL. WILL CONTINUE TO MONITOR AND FOLLOWW WITH POC
--- NOTE | 2019-02-02 11:06 | NUR ---
Pt was sitting on recliner. A, O X 4. LS clear on 2L of oxygen. A. Fib w/ HR 80s. Edema +2 to +3. Cardizem gtt on. Pt c/o pain on his lower back. This nurse administered pain med, Tylenol #3 w/ lidocaine patch. Vyas in place w/ tea color of urine. Creatinine is down to 1.6 from 1.9. K 3.4 this morning. 09-This nurse d/c NC as Dr. Bobo ordered.
[2019-02-02 16:03] LABS: ALBUMIN 3.2 g/dL (3.4-5.0); DIRECT BILIRUBIN 0.2 mg/dL (<0.1-0.3); MAGNESIUM 1.4 mg/dL (1.8-2.4); SGOT 40 U/L (15-37); SGPT 46 U/L (30-65); TOTAL BILIRUBIN 0.8 mg/dL (<0.1-1.0); TOTAL PROTEIN 6.6 g/dL (6.4-8.2)
--- NOTE | 2019-02-02 17:48 | NUR ---
ASSUMMED PT CARE AT APPROXIMATELY 1445. PT A&O X4. ASSESSMENT CHARTED. FALL PRECAUTIONS IN PLACE. PT DENIES HAVING CHEST PAIN. PT STATES SHE BECOMES SOB ON EXCERSION. PT O2 SAT STABLE. PT STATES SHE HAS CHRONIC BACK PAIN. PT RECEIVED ANALGESICS. PT STATED ANALGESICS HELPED RELIEVE PAIN. PT COMFORTABLE IN BED. PT GETS UP C ASSIST C A WALKER. PT VITAL SIGNS STABLE. PT DENIES HAVING FURTHER CONCERNS.
[2019-02-03] VITALS (7 sets, daily range): BP systolic 138–151; BP diastolic 90–98
[2019-02-03 06:41] LABS: ANION GAP 9 mmol/L (7-16); BUN 28 mg/dL (7-18); CALCIUM 9.1 mg/dL (8.5-10.1); CHLORIDE 99 mmol/L (98-107); CO2 27 mmol/L (21-32); CREATININE 1.5 mg/dL (0.6-1.0); GLUCOSE 105 mg/dL (74-106); POTASSIUM 3.1 mmol/L (3.5-5.1); SODIUM 135 mmol/L (136-145); TROPONIN-I <0.06 ng/mL (<0.06)
--- NOTE | 2019-02-03 06:41 | NUR ---
patients cares were assumed at shift change. patient was assessed and meds were passed. patient for the most part had a restful night, howerver frequent beeping of the iv pool was hardd for her. will pass to day shift this lady need a double lumen pick. hourly rounds were done. the bed was kept in a low locked and chair position for the patient comfort.
[2019-02-03] MEDS ORDERED: SERTRALINE HCL50 MG PO (08:30)
[2019-02-03] MEDS ORDERED: MELOXICAM7.5 MG PO (08:31)
[2019-02-03] MEDS ORDERED: IBUPROFEN 800800 M1 PO (08:31)
[2019-02-03] MEDS ORDERED: TRIAMTERENE-HC1 EAC2 PO (08:35)
[2019-02-03] MEDS ORDERED: XARELTO15 MG PO (08:36)
[2019-02-03] MEDS ORDERED: XARELTO20 MG PO (08:37)
--- NOTE | 2019-02-03 14:05 | NUR ---
PATIENT DISCHARGED TO HOME. PATIENT GIVEN DISCHARGE INSTRUCTIONS AND PREVNAR WOUND VAC INSTRUCTIONS, STATED UNDERSTANDING. PATIENT ESCORTED OUT BY WHEELCHAIR, ACCOMPANIED BY FRIEND.
--- NOTE | 2019-02-03 18:42 | NUR ---
PATIENT CARE ASSUMED AT SHIFT CHANGE, ASSESSMENTS CHARTED, VSS, ALERTAND ORIENTED X 4, C/O OF LOWER BACK PAIN, PAIN MEDICATION EFFECTIVE, FAMILY AT BEDSIDE, WILL CONTINUE TO MONITOR
--- NOTE | 2019-02-04 04:56 | NUR ---
ASSUMED CARE AT 1900. PT ALERT AND ORIENTED. DENIES N/V/D. REPORTS SHARP BACK PAIN. ALLEVIATED BY PRN PAIN MEDS. PT ON CARDIZEM DRIP AT 5ML/HR, HR CONTROLLED < 100. C/O SOB, AT BEDINNING OF SHIFT, O2 2L APPLIED. PT SLEPT MOST OF THE NIGHT. VITALS STABLE. WILL CONTINUE TO MONITOR.
[2019-02-04 05:07] LABS: CALCIUM 8.7 mg/dL (8.5-10.1); CREATININE 1.2 mg/dL (0.6-1.0); POTASSIUM 3.5 mmol/L (3.5-5.1)
[2019-02-04 05:12] VITALS: BP 145/93
[2019-02-04 08:00] VITALS: BP 141/93
--- NOTE | 2019-02-04 11:18 | NUR ---
Assess due to high BMI 48.5=class III extreme obesity. Admit with afib, cardiomyopathy. Wts are up about 16 lb however these are differences between standing and bedscale over few days. Does have bilateral leg 2+ and bilateral ankle edema 3+ identified. On lasix. Eating about 50-100% of meals. Was not available on 2 attempted visits for discussion. DNR status. Continue heart healthy diet and available if pt with questions regarding diet. Low nutrition risk
[2019-02-04 12:00] VITALS: BP 151/109
--- NOTE | 2019-02-04 16:57 | NUR ---
Patient resides at home with dtr Charles and son in law. She is home alone dureing the day and usually walks with a walker. She also has a cane at home. She has 10 steps to main floor. Her PCP is Dr angela Lopez at [facility] Patient with recent dc to home with [facility] care. She reports [facility] noted the edemna in her extrementies. Discussed patient dc home Jan 18 and at that time also looked at post acute care. Discussed interest in [facility] but they were out of network. patient reports she believes at this dc she needs post acute care. She felt weak at home. [facility] is on her [employer] list. Left message with admissions as to why not in network. Left [employer] list with patient and family to review. casemgt following.
--- NOTE | 2019-02-04 18:00 | NUR ---
ASSESSMENT CHARTED. PT ALERT AND ORIENTED. PT REPORT HAVING LOWER BACK PAIN. LIDOCAIN PATCH APPLIED WITH PARTIAL RELIEF. UP IN THE CHAIR THIS SHIFT. HAD NUC STRESS TEST THIS AM. NO CARDIAC OR RESPIRATORY DISTRESS NOTED. WILL CONTINUE TO MONITOR.
[2019-02-04 20:08] VITALS: BP 145/96
[2019-02-05 00:25] VITALS: BP 154/95
--- NOTE | 2019-02-05 04:43 | NUR ---
ASSUMED PT CARE AT 1900. PT FAMILY BEDSIDE AND HAD CONCERNS ABOUT BP. ADVISED THAT PT BP WOULD BE MONITORED AND TREATED IF NEEDED. FAMILY AND PATIENT UNDERSTOOD AND OKAY WITH RESPONSE. PT C/O TIGHTNESS TO CHEST AFTER GETTING UP TO BATHROOM. PLACED 2L OXYGEN ON PATIENT AND THAT RELIEVED THE TIGHTNESS. PT ALSO C/O BACK PAIN AND GAVE MEDICATION WHICH RELIEVED SYMPTOMS AND PT WENT TO SLEEP. PT VSS MONITORED THRU SHIFT. WILL CONTINUE TO MONITOR PT PER POC.
[2019-02-05 05:46] VITALS: BP 147/100
[2019-02-05 07:26] VITALS: BP 158/89
[2019-02-05 07:48] LABS: CALCIUM 9.3 mg/dL (8.5-10.1); CREATININE 1.1 mg/dL (0.6-1.0); POTASSIUM 3.7 mmol/L (3.5-5.1)
[2019-02-05 11:32] LABS: FOLIC ACID 19.6 ng/mL (8.6-58.9)
[2019-02-05 11:45] VITALS: BP 144/102
[2019-02-05 12:35] LABS: % SATURATION 5 % (20-39); IRON 17 ug/dL (50-170); TIBC 317 ug/dL (250-450)
--- NOTE | 2019-02-05 13:33 | NUR ---
met with patient and sp with dtr. [facility] ran insurance information a few times and denied they are in network then informed they are in network. Dtr and patient agreeable for referral to [facility] for post acute care.
--- NOTE | 2019-02-05 13:48 | NUR ---
FAXED REFERRAL TO [facility] RE[place] CONFIRMATION AND SPOKE WITH COLTON IN ADM THAT IF SHE CAN ACCEPT TO SUBMIT FOR AUTH. DP TO FOLLOW.
[2019-02-05 16:03] VITALS: BP 127/77
--- NOTE | 2019-02-05 18:04 | NUR ---
ASSUMED CARE 0700. ALERT, DENIES PAIN OTHER THEN ABD PAIN WHEN AMBULATING. ORDERS FOR ABD BINDER-WILL REQUIRE 2 FOR BEST FIT. UP WITH WALKER [address]UTION [address].
[2019-02-05 19:45] VITALS: BP 128/82
[2019-02-06 03:27] VITALS: BP 181/98
--- NOTE | 2019-02-06 05:28 | NUR ---
ASSUMED PT CARE AT 1900. FAMILY AT BEDSIDE AND PT HAD NO C/O PAIN, SOB, OR N/V/D. PT HAS ORDER FOR ABD BINDER HOWEVER UNABLE TO PLACE WILL NEED TO ORDER MORE FROM CS. PT HAD RESTLESS NIGHT. PHYSICIAN CONTACTED DUE TO NOSEBLEED AND ELEVATED BP. PER PHYSICIAN CONTINUE TO MONITOR AND NOTIFY IF BLEEDING IS NOT CONTROLLED. ADVISED PT OF PHYSICIAN CONCERNS AND PT IS OKAY WITH ACTION TAKEN. WILL CONTINUE TO MONITOR PT PER POC.
[2019-02-06 07:15] VITALS: BP 157/110
--- NOTE | 2019-02-06 10:01 | NUR ---
rec auth from [facility] for skilled care. Patient not stable to dc today per phys. Dtr inquired into [facility] would prefer patient remain here for acute rehab. Plan for patient return home post skilled/rehab care. Requested [facility] eval if candidate.
[2019-02-06 11:50] VITALS: BP 131/87
--- NOTE | 2019-02-06 15:46 | NUR ---
Patient accepted clinically to [facility], they will seek auth for acute rehab. Notified dtr.
[2019-02-06 16:00] VITALS: BP 172/71
--- NOTE | 2019-02-06 17:43 | NUR ---
PT ALERT AND ORIENTED. HAD HIGH BP THIS SHIFT. SCHEDULED BP MEDS GIVEN. UP IN THE CHAIR THIS SHIFT. FAMILY UPDATED ON PT'S PROGRESS. NPO AFTER MIDNIGHT FOR CARDIAC CATHETERIZATION IN AM. NO CONCERNS AT THIS TIME. WILL CONTINUE TO MONITOR.
[2019-02-06 18:12] VITALS: BP 113/54
[2019-02-06 19:41] VITALS: BP 135/71
[2019-02-07] VITALS (15 sets, daily range): BP systolic 115–164; BP diastolic 73–99
--- NOTE | 2019-02-07 02:16 | NUR ---
ASSUMED PT CARE AT 1900. FAMILY AT BEDSIDE OF PT. PT C/O NO PAIN, SOB, N/V/D. PT IS NPO AT MIDNIGHT FOR CATH IN MORNING. WILL CONTINUE TO MONITOR PT PER POC.
[2019-02-07 05:29] LABS: HEMATOCRIT 34.9 % (37.0-47.0); HEMOGLOBIN 10.8 gm/dL (12.0-15.0); MCH 21.6 pg (26.0-34.0); MCHC 30.8 g/dL (28.0-37.0); RBC 4.98 mil/uL (4.20-5.00); RDW 21.3 % (10.5-14.5)
[2019-02-07 05:55] LABS: CALCIUM 8.9 mg/dL (8.5-10.1); CREATININE 1.1 mg/dL (0.6-1.0); POTASSIUM 3.2 mmol/L (3.5-5.1)
--- NOTE | 2019-02-07 11:48 | EKG ---
[address] [address] ELECTROCARDIOGRAM REPORT Name: INDIA MARTINEZ Room #: 201-P ADM IN M.R.#: [id number] Admission: 02/01/19 Attend Phys: Kevyn Bobo MD Discharge: Date of : 45 Report #: [id number] THIS REPORT FOR: //name// [facility] Test Date: 2019-02-07 Test Time: 10:13:11 Pat Name: INDIA MARTINEZ Department: Room: 201 P Gender: F Leveler: Edison CAZARES : 1945 Requested By: Flako Bryant Order Number: [id number] MD: Riky Michelle Measurements Intervals [place] Rate: 85 P: FL: QRS: -41 QRSD: 157 T: 31 QT: 409 QTc: 487 Interpretive Statements Atrial fibrillation Right bundle branch block Inferior infarct, old Compared to ECG 02/01/2019 14:46:47 No significant changes Electronically Signed On 02-07-2019 11:48:17 AUTOMATIC BUFFER by Riky Michelle [email or web address] <ELECTRONICALLY SIGNED> By: Riky Michelle MD 02/07/19 1148 1013 1013 Riky Michelle MD /KATIE
--- NOTE | 2019-02-07 12:23 | CATHLAB ---
[facility] [address] [place] [address] INVASIVE PROCEDURE REPORT Name: INDIA MARTINEZ Room #: 201-P ADM IN M.R.#: [id number] Admission: 02/01/19 Attend Phys: Suzy Godoy Discharge: Date of : 45 Report #: [id number] THIS REPORT FOR: //name// APPROVED REPORT Study performed: 02/07/2019 07:39:20 Patient Details Patient Status: Out-Patient Room #: The patient is a 73 year-old female Event Personnel Flako Bryant Meteorology Instructor, Joni Guardado RN, Rowena Diamond RN RN, Gagandeep Darnell Monitor, Trevon Voss RTR Monitor, Bandar Mckeon RTR Scrub Procedures Performed Left Heart Cath w/or w/o Coronaries 4441611 [facility] Place w/wo Plasty Single RCA 207375 Indication CHF Current Status: , Dyspnea, Peripheral edema, CardiomyopathyPositive stress test, Chest pain Risk Factors Obesity, HypercholesterolemiaPhysical Activity, Hypertension, Diabetes Procedure Narrative The Right Wrist^ was infiltrated with 1% Lidocaine subcutaneous anesthesia. A TRANSRADIAL SLENDER 6F GLIDESTerapeakTH KIT #[id number] sheath was inserted into the Right Radial Artery^. Coronary angiography was performed using coronary diagnostic catheters. The right coronary system was accessed and visualized with a JR4 catheter. The left coronary system was accessed and visualized with a 5FR JL4 #[id number] catheter. Left ventricular/Aortic Valve gradient assessed via catheter pullback. Closure device was deployed with a Fr VASC BAND R 24CM #[id number]. The patient tolerated the procedure well and there were no complications associated with the procedure. There was no hematoma. Intraoperative Conscious Sedation Sedation start time: 8.12 Case end Time: 9.08 Fentanyl 50 mcg Versed 1 mg [facility] [place] [address] INVASIVE PROCEDURE REPORT Name: MICHELLEINDIA [place] Room #: 201-P ADM IN M.R.#: [id number] Admission: 02/01/19 Attend Phys: Suzy Godoy Discharge: Date of : 45 Report #: [id number] Fluoro Time: 14.48 minutes Dose: DAP 27351.80 cGycm2 2558 mGy Contrast Type and Amount: Omnipaque 205 ml Coronary Angiography The patient's coronary anatomy is right dominant. Diagnostic Cath Left Main This is a large caliber vessel, patent with no flow-limiting lesions. LAD This is a moderate to large caliber vessel, traversing the anterior wall and wrapping around the apex. There is mild disease in the proximal and mid segments, less than 20%. Diagonal 1 This is a patent vessel, with no flow-limiting lesions. Diagonal 2 This is a patent vessel, with no flow-limiting lesions. Circumflex This is a moderate to large caliber vessel, patent as it supplies to OM vessels. OM1 This is a patent vessel, with no flow-limiting lesions. OM2 This is a patent vessel, with no flow-limiting lesions. Right Coronary This is a dominant vessel with severe occlusions in the proximal mid segments, 70-90%. R PDA This is a patent vessel, with no flow-limiting lesions. RPLV This is a patent vessel, with no flow-limiting lesions. Left Ventriculography Left Ventriculography was not performed. Ejection Fraction was 30% based off patient's Nuclear Cardiac Stress Test. An LVEDP was measured and there is no gradient across the outflow tract. Hemodynamics The aortic pressure is 150/87 mmHg with a mean of 104 mmHg. The left ventricular pressure is 144/20 mmHg with a mean of mmHg. The left ventricular end diastolic pressure is 29 mmHg. There was no gradient across the aortic valve upon pullback. Pullback from the left ventricle to the aorta revealed no gradient across the aortic valve. PCI Technique Lesion Percutaneous coronary intervention was performed on the proximal right coronary artery. The lesion stenosis prior to intervention was [facility] [address] [place] [address] INVASIVE PROCEDURE REPORT Name: MICHELLEINDIA Room #: 201-P ADM IN M.R.#: [id number] Admission: 02/01/19 Attend Phys: Suzy Godoy Discharge: Date of : 45 Report #: [id number] 90% with NASIMA 3 flow. A VISTA 6FR JR 4 #[id number] Guide Catheter was used to engage the ostium. A Luge Wire .014 x 182CM #[id number] Interventional Guidewire was used to cross the lesion. BALLOON DILATION A Balloon catheter Euphora RX 2.75 x 15 #[id number] was inserted and inflated up to 14.00atm for 28seconds. Additional Inflation: 14.00atm for 12seconds. STENT DEPLOYMENT A drug-eluting stent RESOLUTE MEETA RX 3.5 X 18 #[id number] was inserted and inflated up to 18.00atm for 21seconds. POST STENT DEPLOYMENT BALLOON DILATION A Balloon catheter Euphora NC RX 4.0 x 12 #[id number] was inserted and inflated up to 16.00atm for 10seconds. Additional Inflation: 16.00atm for 11seconds. Final angiography reveals 0 % stenosis with NASIMA 3 flow. PCI Technique Lesion 2 Percutaneous Coronary Intervention was performed on the mid right coronary artery. The lesion stenosis prior to intervention was 70% with NASIMA flow. A VISTA 6FR JR 4 #[id number] Guide Catheter was used to engage the ostium. A Luge Wire .014 x 182CM #[id number] Interventional Guidewire was used to cross the lesion. Stent Deployment A drug-eluting stent RESOLUTE MEETA RX 3.5 X 18 #[id number] was inserted and inflated up to 18.00atm for 21seconds. Post Stent Deployment Balloon Dilation A Balloon catheter Euphora NC RX 4.0 x 12 #[id number] was inserted and inflated up to 16.00atm for 15seconds. Additional Inflation: 16.00atm for 10seconds. Final angiography reveals 0 % stenosis with NASIMA 3 flow. Conclusion 1. Successful insertion of drug-eluting stents into the proximal and mid segments of the dominant RCA. 2. Mild disease in the LAD. 3. Severe mixed type cardiomyopathy. [facility] [address] [place] [address] INVASIVE PROCEDURE REPORT Name: INDIA MARTINEZ Room #: 201-P ADM IN M.R.#: [id number] Admission: 02/01/19 Attend Phys: Suzy Godoy Discharge: Date of : 45 Report #: [id number] 4. Recommend dual antiplatelet therapy and aggressive risk factor management. <ELECTRONICALLY SIGNED> By: Flako Bryant MD 02/07/19 1223 22 122 Flako Bryant MD /INF
--- NOTE | 2019-02-07 12:52 | NUR ---
AUTHORIZATION REQUEST FOR ACUTE REHAB STAY COMPLETED THIS DATE. WILL AWAIT RESPONSE. THANK YOU FOR THIS REFERRAL.
--- NOTE | 2019-02-07 13:33 | NUR ---
Pt back from cardiac catheterization technologist s/p stenting. Plan for dc to [facility] acute rehab tomorrow pending ins auth. They have submitted auth request to the ins plan.
--- NOTE | 2019-02-07 15:10 | NUR ---
SUPERVISOR STATEMENT CLERKS RECEIVED CALL FROM ALEXA FROM [facility] STATING THAT PATIENT HAD BEEN DENIED FOR ACUTE REHAB STAY DUE TO NEEDS COULD BE MET AT SKILLED LEVEL. PEER TO PEER CAN BE COMPLETED BY CALLING TO SCHEDULE. PEER TO PEER MUST BE COMPLETED BY 02/13/19. SHRIMP CLEANER INFORMED.
--- NOTE | 2019-02-07 17:07 | NUR ---
ASSESSMENT CHARTED. VSS. PT ALERT AND ORIENTED. HAD CARDIAC CATH TODAY. REPORT HAVING LOWER BACK PAIN. PRN PAIN MED GIVEN WITH PARTIAL RELIEF. FAMILY UPDATED ON PT'S PROGRESS. FALL PRECAUTION IN PLACE. WILL CONTINUE TO MONITOR.
[2019-02-08 03:19] VITALS: BP 160/76
[2019-02-08 04:07] LABS: HEMATOCRIT 35.1 % (37.0-47.0); HEMOGLOBIN 10.9 gm/dL (12.0-15.0); MCH 21.6 pg (26.0-34.0); MCV 69.7 fL (80.0-100.0); RBC 5.04 mil/uL (4.20-5.00); RDW 20.8 % (10.5-14.5)
[2019-02-08 04:26] LABS: ALBUMIN 2.7 g/dL (3.4-5.0); CALCIUM 8.9 mg/dL (8.5-10.1); CREATININE 1.1 mg/dL (0.6-1.0); TOTAL BILIRUBIN 0.9 mg/dL (<0.1-1.0); TOTAL PROTEIN 6.8 g/dL (6.4-8.2)
--- NOTE | 2019-02-08 05:15 | NUR ---
ASSUMED PT CARE AT 1900, VSS, BP SLIGHTLY ELEVATED, PT TO GET BP MEDS THIS AM. PT EDEMA IS IMPROVING. PT HAD GOOD URINE OUTPUT LAST NIGHT, NO COMPLAINTS OF PAIN OR DISTRESS. PT'S RIGHT RADIAL ACCESS SITE IS CDI. NO HEMATOMA. WILL CONTINUE TO MONITOR PER POC.
[2019-02-08 07:20] VITALS: BP 146/80
--- NOTE | 2019-02-08 09:25 | EKG ---
[address] [place] [place] [address] ELECTROCARDIOGRAM REPORT Name: INDIA MARTINEZ Room #: 201-P ADM IN M.R.#: [id number] Admission: 02/01/19 Attend Phys: Kevyn Bobo MD Discharge: Date of : 45 Report #: [id number] THIS REPORT FOR: //name// [facility] Test Date: 2019-02-08 Test Time: 07:32:31 Pat Name: INDIA MARTINEZ Department: Room: 201 P Gender: F Opal Miner: MICKI : 1945 Requested By: Flako Bryant Order Number: [id number] MD: Vivek Bal Measurements Intervals [place] Rate: 87 P: VA: QRS: -32 QRSD: 161 T: -31 QT: 398 QTc: 479 Interpretive Statements Atrial fibrillation Right bundle branch block Inferior infarct, age indeterminate Compared to ECG 02/07/2019 10:13:11 No significant change was found Electronically Signed On 02-08-2019 9:24:48 DIGITAL MARKETING ASSISTANT by Vivek Bal [email or web address] <ELECTRONICALLY SIGNED> By: Vivek Bal MD, [facility] 02/08/19 0924 1 1 Vivek Bal MD, [facility] /EPI
[2019-02-08 11:35] VITALS: BP 135/54
[2019-02-08] MEDS ORDERED: CLOPIDOGREL75 MG PO (12:32)
[2019-02-08] MEDS ORDERED: DIGOXIN250 MCG PO (12:33)
[2019-02-08] MEDS ORDERED: CARDIZEM CD120 MG PO (12:35)
[2019-02-08] MEDS ORDERED: LISINOPRIL20 MG PO (12:36)
--- NOTE | 2019-02-08 14:07 | NUR ---
PT DISCHARGING TODAY TO [facility] SPOKE WITH COLTON IN ADM SHE RECEIVED DC ORDERS/SUMMARY AND ARRANGED TRANSPORT BY [facility] FOR 1730 TODAY. NOTIFIED PT'S DTR OF DC AND TIME OF TRANSPORT. UNIT NOTIFIED AND CHART COPY PER US. RN TO CALL REPORT TO [phone].
--- NOTE | 2019-02-08 15:48 | EKG ---
[address] [employer] [place] [address] ELECTROCARDIOGRAM REPORT Name: INDIA MARTINEZ Room #: 201-P ADM IN M.R.#: [id number] Admission: 02/01/19 Attend Phys: Kevyn Bobo MD Discharge: Date of : 45 Report #: [id number] THIS REPORT FOR: //name// [facility] Test Date: 2019-02-08 Test Time: 13:26:01 Pat Name: INDIA MARTINEZ Department: Room: 201 P Gender: F Resident Caregiver: Edison CAZARES : 1945 Requested By: Riky Michelle Order Number: [id number] MD: Vivek Bal Measurements Intervals [place] Rate: 82 P: FL: QRS: -33 QRSD: 147 T: 5 QT: 392 QTc: 458 Interpretive Statements Atrial fibrillation Right bundle branch block Inferior infarct, old Compared to ECG 02/08/2019 07:32:31 No significant changes Electronically Signed On 02-08-2019 15:48:18 BUTTER MAKER by Vivek Bal [email or web address] <ELECTRONICALLY SIGNED> By: Vivek Bal MD, [facility] 02/08/19 1548 1326 1326 Vivek Bal MD, FAC /EPI
--- NOTE | 2019-02-08 16:36 | NUR ---
Pt dcing to snf at [facility] today at 5:30pm. Van time arranged per [facility] [place] to accomodate family as dtr Saray will be following the pt out there. Pt has some cp this am. EKG done and cardiology saw pt. Pt cleared for dc again. Cardiology here and visited with the pt and her dtr Saray at bedside. Questions answered. Pt and dtr agreeable to dc to snf today and dtr states all her questions were answered. Care team updated. Chart copy ready to be sent with the pt. Dc service planner faxed orders to the snf. Nursing to call report. Pt to be skilled with therapy and plan for dc back to home with hh as appropriate.
--- NOTE | 2019-02-08 17:43 | NUR ---
ASSESSMENT CHARTED. PT ALERT AND ORIENTED. VSS. RECEIVED PRN PAIN MED FOR A HEADACHE WITH PARTIAL RELIEF. SEEN BY DR. KESSLER. ORDERS GIVEN TO DISCHARGE PT TO SNF. FAMILY AND PT NOTIFIED. PT LEFT THE FACILITY ACCOMPANIED BY THE DAUGHTER.
--- NOTE | 2019-02-12 12:08 | HC ---
[facility] [place] [address] CONSULTATION Name: INDIA MARTINEZ Room #: 201-P [facility] IN M.R.#: [id number] Admission: 02/01/19 Attend Phys: Kevyn Bobo MD Discharge: 02/08/19 Date of : 45 Report #: [id number] THIS REPORT FOR: //name// CC: Kevyn CARRION Physician staff DATE OF SERVICE: 02/06/2019 HISTORY OF PRESENT ILLNESS: The patient is a 73-year-old female admitted originally with abdominal pain and chest discomfort. She was noted to have shortness of breath. She had leg swelling. She was diagnosed with brdlq-jl-elnlwuc systolic heart failure along with atrial fibrillation with rapid ventricular rate, acute renal insufficiency superimposed on chronic kidney disease, morbid obesity with a BMI of 46. She has been anticoagulated on Xarelto. She has been on a Cardizem drip. She has had problems with elevated blood pressure including earlier today when she had a blood pressure of 157/110. We are seeing her in rehabilitation medicine consultation. PAST MEDICAL HISTORY: Includes a recent pulmonary embolus. She has the atrial fibrillation, hypertension, hyperlipidemia, right mastectomy, hysterectomy, spine surgery, right kidney mass. ALLERGIES: No known drug allergies. FAMILY HISTORY: Grandmother with heart disease. Mother with blood pressure and diabetes. HABITS: No history of tobacco or alcohol abuse. SOCIAL HISTORY: Lives with her daughter and grandson. Two steps in. She utilized a front-wheeled walker, single mark. She used a cane to the door and then a wheelchair for longer distances. She is home alone during the day. There are other family members that can assist. REVIEW OF SYSTEMS: No current complaints of chest pain, shortness of breath or abdominal discomfort. PHYSICAL EXAMINATION: GENERAL: A 73-year-old pleasant, obese -Montserr[place] female in no obvious distress. VITAL SIGNS: Last recorded temperature 97.7, pulse 94, respirations 18, blood pressure 131/87. The patient is alert. She is pleasant. HEENT: Appeared to be benign. NEUROLOGIC: Cranial nerves are grossly intact. Facies are symmetric. EXTREMITIES: She has functional range of motion of both upper extremities. [facility] [address] [place] [address] CONSULTATION Name: INDIA MARTINEZ Room #: 201-P [facility] IN M.R.#: [id number] Admission: 02/01/19 Attend Phys: Kevyn Bobo MD Discharge: 02/08/19 Date of : 45 Report #: [id number] Strength is grade 4-/5. DTRs are trace to 1. Lower extremities, she does have 1+ pitting edema pretibial bilateral lower extremities. Some early venous stasis changes are noted. Tone appeared to be intact. Strength is probably grade 4-/5. DTRs are trace to 1. She was min assist with sit to stand and did ambulate up to 34 feet min assist with a front-wheeled walker. She has been mod assist donning and doffing socks. ASSESSMENT: A 73-year-old -[place] female with the following problem list: 1. Medical complexity with generalized debilitation. 2. Acute on chronic systolic heart failure exacerbation. 3. Atrial fibrillation with rapid ventricular response. 4. Significant hypertension. 5. Cardiomyopathy. 6. Recent pulmonary embolism. 7. Acute renal failure superimposed on chronic kidney disease. 8. Electrolyte abnormalities. 9. Morbid obesity. PLAN: The patient had been set up to go to a [facility] facility; however, family has requested that we assess the patient for an acute in-hospital inpatient rehabilitation stay. The patient is being closely monitored by Internal Medicine and Cardiology and does have significant medical comorbidities as noted above. She was significantly hypertensive earlier today. Has been on a Cardizem drip. She is very motivated. I would agree that a short acute in-hospital inpatient rehabilitation stay where she can have more close medical supervision by the franchise consultant physicians would be appropriate in her case. She is improving with her functional mobility. She does have family members including extended family members that are currently here and that would be willing to stay with her initially upon returning back home after rehabilitation. Would anticipate that a short acute in-hospital inpatient rehabilitation stay would be warranted in order to achieve this goal. Insurance precertification issues to be obtained. <ELECTRONICALLY SIGNED> By: Gagandeep De Souza MD 02/12/19 1208 1310 1814 Gagandeep De Souza MD /nt
== END 2019-02-08 17:49 | DRG 246 ==
LOC: ER 14:41 → 2N 17:05 → EROBS 17:05 → 2N 17:42
PROVIDERS: Emergency Medicine; Internal Medicine; Internal Medicine Cardiovascular Disease; Nurse Practitioner Adult Health; Nurse Practitioner Gerontology; ADMIT Hospitalist
PROC: 027035Z Dilation of Coronary Artery, One Artery with Two Drug-eluting Intraluminal Devices, Percutaneous Approach (ICD-10-PCS; principal; 2019-02-07)
PROC: B2111ZZ Fluoroscopy of Multiple Coronary Arteries using Low Osmolar Contrast (ICD-10-PCS; principal; 2019-02-07)
PROC: 4A023N7 Measurement of Cardiac Sampling and Pressure, Left Heart, Percutaneous Approach (ICD-10-PCS; principal; 2019-02-07)
DX: I13.0 Hypertensive heart and chronic kidney disease with heart failure and stage 1 through stage 4 chronic kidney disease, or unspecified chronic kidney disease (principal); I50.23 Acute on chronic systolic (congestive) heart failure; E44.1 Mild protein-calorie malnutrition; N17.9 Acute kidney failure, unspecified; Z68.42 Body mass index [BMI] 45.0-49.9, adult; I48.0 Paroxysmal atrial fibrillation; I25.10 Atherosclerotic heart disease of native coronary artery without angina pectoris; I42.9 Cardiomyopathy, unspecified; E78.5 Hyperlipidemia, unspecified; E66.01 Morbid (severe) obesity due to excess calories; Z66 Do not resuscitate; D64.9 Anemia, unspecified; N18.3 Chronic kidney disease, stage 3 (moderate); E87.6 Hypokalemia; E83.42 Hypomagnesemia; R74.0 Nonspecific elevation of levels of transaminase and lactic acid dehydrogenase [LDH]; Z95.5 Presence of coronary angioplasty implant and graft; Z90.11 Acquired absence of right breast and nipple; Z87.891 Personal history of nicotine dependence; Z90.710 Acquired absence of both cervix and uterus; Z82.49 Family history of ischemic heart disease and other diseases of the circulatory system; Z83.3 Family history of diabetes mellitus; Z79.82 Long term (current) use of aspirin; Z79.899 Other long term (current) drug therapy
CPT/HCPCS: 10081

== ENCOUNTER 2019-07-13 21:49 | Inpatient (IN) | payer OTHER ==
[~2019-07-13] VITALS: Ht 162.6 cm; Wt 111.0 kg
--- NOTE | ~2019-07-13 | HC ---
[facility] [place] [address] CONSULTATION Name: INDIA MARTINEZ Room #: 218-P ADM IN M.R.#: [id number] Admission: 07/13/19 Attend Phys: Jamarcus Hillman MD Discharge: Date of : 45 Report #: [id number] THIS REPORT FOR: cc: [facility] - Clinic physician unknown [facility] - Clinic physician unknown David Becerra MD ~ CC: [facility] unknown Jamarcus Hillman DATE OF SERVICE: 07/14/2019 NEPHROLOGY CONSULTATION REASON FOR CONSULTATION: Elevated creatinine level. HISTORY OF PRESENT ILLNESS: This is a 73-year-old female who came in through the Emergency Room yesterday complaining of weakness. I have spoken with her some today and she is not a very good historian. I pieced together between what she tells me and what is present in her computerized records, more to try to decipher her current status. She has been at home. She lives with the daughter here in town. Her daughter helps her out somewhat, but it sounds like she has had a couple of falls over recent weeks. She is on a lengthy list of medications. She states she has been taking them. She has a history of hypertension and is on some antihypertensives. She never recalls ever having any renal-related problems before. She does not remember seeing a breakfast host, but this is where her sketchy history and recall comes in. She was not hypotensive on arrival in the Emergency Room, but her creatinine level was 3.0 with a BUN of 61. This morning, her creatinine level is 2.9. She had several labs done during a 10-day hospitalization in 01/2019 as well as a few in the months preceding that. Generally, she ran a creatinine level of 1.1-1.2 during that time. There was one level as high as 1.9. She had a CT scan done in the Emergency Room yesterday which showed fairly unremarkable kidneys. They are neither particularly large nor small. There is no evidence of hydronephrosis. She has significant vascular disease, but I saw nothing specific to the kidneys on her CT scan. I also would note that she had a few areas of ascites including perihepatic and perisplenic as well as a bit down the pelvis. There was not a massive amount of ascites. She cannot tell me if she has been edematous recently. She has a very difficult body habitus due to her longstanding obesity and redundant tissues. There was concern that she had been down on the floor for a while. There was no CPK done on arrival. Her urinalysis on arrival showed specific gravity 1.015, pH 5.0 with a negative dipstick. There was concern by the admitting team that she was volume overloaded. She was given a single dose of furosemide. PAST MEDICAL HISTORY: Morbid obesity. She has a history of hypertension. She has had some atrial fibrillation in the past as well as right bundle branch [facility] [address] [place] [address] CONSULTATION Name: INDIA MARTINEZ Room #: 218-P ADM IN [place].#: [id number] Admission: 07/13/19 Attend Phys: Jamarcus Hillman MD Discharge: Date of : 45 Report #: [id number]. 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 She has also been previously diagnosed with a thoracic aortic aneurysm, which apparently was stable on her CT scan. She has also had a history of breast cancer with a right mastectomy and previous chemotherapy. MEDICATIONS: As listed through the Emergency Room include Plavix 75 mg daily, digoxin 0.25 mg daily, diltiazem 360 mg daily, lisinopril 20 mg daily, albuterol inhaler, omeprazole 20 mg daily, carvedilol 25 mg b.i.d., potassium 20 mEq daily, sertraline 50 mg daily, Xarelto 20 mg daily, atorvastatin 40 mg daily, furosemide 40 mg daily and anastrozole 1 mg daily. ALLERGIES: No known medical allergies. FAMILY HISTORY: Unavailable. SOCIAL HISTORY: The patient is single, lives in [place], [place] in an apartment with her daughter. She is retired. REVIEW OF SYSTEMS: Appears to be very sedentary. She had had a couple of falls. She states her daughter helps with her food, but then she states she has not been eating much of late. She is uncertain about how much fluid she has been taking. She denies nausea, vomiting or diarrhea. She is unaware of difficulty voiding urine. She is unaware of fevers, chills or sweats. I cannot tell if she has been taking any nonsteroidals or any other new medications. PHYSICAL EXAMINATION: GENERAL: A 73-year-old female who is awake and responsive, but lethargic. She is in no acute distress. VITAL SIGNS: Blood pressure 111/85, heart rate 100, temperature 36.5 degrees centigrade, oxygen saturation 99%, respiratory rate 16. HEENT: Shows pupils are equal and reactive. Sclerae nonicteric. Oral mucosa is dry. NECK: Veins are not distended. Neck is supple. CHEST: Shows shallow respirations bilaterally. I hear no rales, rhonchi or wheezes. HEART: Has somewhat distant heart tones, appears fairly regular. ABDOMEN: Shows signs of having been morbidly obese, although she has lost a lot of weight and has lots of redundant abdominal tissue. Bowel sounds appear to be present. I cannot palpate organomegaly or masses. EXTREMITIES: Show no peripheral edema. She has 1+ peripheral pulses. LABORATORY DATA: From this morning, sodium 137, potassium 4.2, chloride 101, bicarb 21, BUN 58, creatinine down to 2.9, glucose 138, AST 18, ALT 13. Calcium 8.9, total protein 7.1, albumin 2.9. White count 4.3, hemoglobin 13.1, hematocrit 41.4, platelets 261,000. Urinalysis, specific gravity 1.015, pH 5.0, negative dipstick, negative microscopic exam. [facility] [address] [place] [address] CONSULTATION Name: INDIA MARTINEZ [place] Room #: 218-P ADM IN M.R.#: [id number] Admission: 07/13/19 Attend Phys: Jamarcus Hillman MD Discharge: Date of : 45 Report #: [id number] ASSESSMENT: 1. Elevated creatinine consistent with acute kidney injury. At the present time, she looks a bit dry on exam. Blood pressure is on the low end of normal. She is on numerous antihypertensives at home and she says she has been taking her meds. I would suspect that this is related to some hypotension at home and possibly some volume depletion. Her lisinopril in particular has been held. She has a Vyas catheter and is making a small amount of urine. Her urinalysis was totally unremarkable. Her kidneys looked normal on CT scan. I think this is more hemodynamic than anything. Her volume is very difficult to decipher due to her history of morbid obesity and excessive amounts of tissue access. I cannot find if she has received nephrotoxic exposures. I cannot find that she has received any nonsteroidals. At this point, I will check a fractional excretion of sodium. I suspect it will be low. The border between getting her volume replete and leaving her on the dry side is going to be very difficult to manage, but we will see what we can do with that. 2. Probable chronic kidney disease with a baseline creatinine level of 1.1-1.2, which is significantly higher than we would expect. 3. Hypertension by history, multiple meds as noted. Blood pressure is on the low side. I will hold those meds for now. 4. History of breast cancer. 5. Ascites, a new finding. Again, she does not appear to be peripherally volume overloaded. 6. History of thoracic aortic aneurysm, stable. PLAN: 1. I have already held her antihypertensive meds. 2. I will hold off on her diuretics at this time. 3. I will check a fractional excretion of sodium. 4. Repeat labs in the morning. 5. We will follow along the care of this patient. By: [id number] David Becerra MD /nt
[~2019-07-13 21:49] MED LIST changes: +CARDIZEM CD120 MG PO; +CLOPIDOGREL75 MG PO; +DIGOXIN250 MCG PO; +IBUPROFEN 800800 M1 PO; +LISINOPRIL20 MG PO; +MELOXICAM7.5 MG PO; +SERTRALINE HCL50 MG PO; +TRIAMTERENE-HC1 EAC2 PO
[2019-07-13 21:56] VITALS: BP 125/80
--- NOTE | 2019-07-13 22:01 | NUR ---
PT DROPPED OFF BY FAMILY, DID NOT STAY TO TALK WITH NURSE OR PHYSICIAN PT IS VERY SLEEPY AT TRIAGE AND IS NOT ABLE TO STAY AWAKE TO ANSWER QUESTIONS
[2019-07-13 22:28] LABS: HEMOGLOBIN 13.1 gm/dL (12.0-15.0); MCH 22.7 pg (26.0-34.0)
[2019-07-13 22:30] LABS: HEMATOCRIT 41.4 % (37.0-47.0); MCHC 31.7 g/dL (28.0-37.0); MCV 71.7 fL (80.0-100.0); PLATELET COUNT 261 thou/uL (150-400); RBC 5.77 mil/uL (4.20-5.00); RDW 18.3 % (10.5-14.5); WBC 4.3 thou/uL (4.0-11.0)
[2019-07-13 22:30] LABS: URINE BLOOD NEGATIVE (Negative); URINE CLARITY CLEAR; URINE COLOR YELLOW; URINE GLUCOSE-RANDOM* NEGATIVE (Negative); URINE KETONES NEGATIVE (Negative); URINE LEUKOCYTES-REFLEX NEGATIVE (Negative); URINE NITRITE-REFLEX NEGATIVE (Negative); URINE PROTEIN (DIPSTICK) NEGATIVE (Negative); URINE SPECIFIC GRAVITY 1.015 (1.005-1.035); URINE UROBILINOGEN 0.2 E.U./dl (0.2-1.0)
[2019-07-13 22:35] LABS: ICTOTEST (BILI CONFIRMATORY) Negative (Negative); URINE BILIRUBIN NEGATIVE (Negative)
[2019-07-13 22:36] LABS: ANION GAP 10 mmol/L (7-16); BUN 61 mg/dL (7-18); CALCIUM 8.9 mg/dL (8.5-10.1); CHLORIDE 100 mmol/L (98-107); CO2 24 mmol/L (21-32); GLUCOSE 108 mg/dL (74-106); SODIUM 134 mmol/L (136-145)
[2019-07-13 22:41] LABS: APTT 40.4 Seconds (24.5-32.8); PROTIME 20.5 Seconds (9.3-11.4)
[2019-07-13 22:45] LABS: ALBUMIN 2.9 g/dL (3.4-5.0); SGOT 18 U/L (15-37); SGPT 13 U/L (30-65); TOTAL PROTEIN 7.1 g/dL (6.4-8.2); TROPONIN-I <0.06 ng/mL (<0.06)
--- NOTE | 2019-07-13 23:08 | EKG ---
[facility] [place] [address] ELECTROCARDIOGRAM REPORT Name: INDIA MARTINEZ Room #: REG [facility]#: [id number] Admission: 07/13/19 Attend Phys: Discharge: Date of : 45 Report #: [id number] THIS REPORT FOR: cc: [facility] - Clinic physician unknown [facility] - Clinic physician unknown Riky Michelle MD ~ THIS REPORT FOR: //name// [facility] ED Test Date: 2019-07-13 Test Time: 22:35:38 Pat Name: INDIA MARTINEZ Department: Room: Gender: F Ground Water Contractor: JUSTINA : 1945 Requested By: Mehul Garcia Order Number: [id number] MD: Riky Michelle Measurements Intervals [place] Rate: 108 P: VA: QRS: -31 QRSD: 159 T: 7 QT: 385 QTc: 516 Interpretive Statements Atrial fibrillation Right bundle branch block Compared to ECG 02/08/2019 13:26:01 Myocardial infarct finding no longer present Electronically Signed On 07-13-2019 23:06:31 CDT by Riky Michelel [email or web address] <ELECTRONICALLY SIGNED> By: Riky Michelle MD 07/13/19 2306 34 34 Riky Michelle MD /KATIE
[2019-07-13 23:18] LABS: ANISOCYTOSIS 2+; HYPOCHROMASIA 2+; LARGE PLATELETS OCCASIONAL; MICROCYTES 1+; POLYCHROMASIA 1+
[2019-07-13 23:19] LABS: POIKILOCYTOSIS 2+; SCHISTOCYTES 2+; TARGET CELLS 1+
--- NOTE | 2019-07-13 23:28 | NUR ---
lisa osei, call anytime [phone]
[2019-07-13 23:59] VITALS: BP 101/76
[2019-07-14] VITALS (9 sets, daily range): BP systolic 111–132; BP diastolic 74–102
[2019-07-14] MEDS ORDERED: TORSEMIDE20 MG PO (03:02)
[2019-07-14] MEDS ORDERED: ISOSORBIDE DINI30 MG PO (03:03)
[2019-07-14] MEDS ORDERED: SPIRONOLACTONE25 M1 PO (03:04)
[2019-07-14] MEDS ORDERED: HYDRALAZINE 2525 M1 PO (03:08)
[2019-07-14] MEDS ORDERED: NYSTATIN 100,0015 G1 (03:18)
[2019-07-14] MEDS ORDERED: IPRAT-ALBUT 0.5-3 ML INH (03:20)
[2019-07-14] MEDS ORDERED: PROAIR HFA8.5 GM INH (03:22)
--- NOTE | 2019-07-14 03:52 | NUR ---
PT ARRIVED AT THE FLOOR AROUND 0030, PT IS A&0X4, COMPLAINED OF ABDOMINAL PAIN, MEDICATION GIVEN PRN ASORDERED WITH PARTIAL RELIEF, DENIES CHEST PAIN OR SOB, AFIB/BBB WITH TACHYCARDIA ON THE MONITOR, VITALS STABLE ON ROOM AIR, STILL COMPLAINS OF WEAKNESS, ADMISSION ASSESSMENT DONE AND CHARTED, WILL CONTINUE TO MONITOR
[2019-07-14 04:43] LABS: CHOLESTEROL 160 mg/dL (<200); HDL CHOLESTEROL 31 mg/dL (>40); LDL CHOLESTEROL 111 mg/dL (<100); TC:HDL 5.2 Ratio (Not establshd); TRIGLYCERIDE 94 mg/dL (<150); VLDL 19 mg/dL (<40)
[2019-07-14 04:44] LABS: SERUM ASSESSMENT Clear
[2019-07-14 04:45] LABS: ANION GAP 15 mmol/L (7-16); BUN 58 mg/dL (7-18); CALCIUM 8.9 mg/dL (8.5-10.1); CHLORIDE 101 mmol/L (98-107); CO2 21 mmol/L (21-32); CREATININE 2.9 mg/dL (0.6-1.0); GLUCOSE 138 mg/dL (74-106); POTASSIUM 4.2 mmol/L (3.5-5.1); SODIUM 137 mmol/L (136-145); TROPONIN-I <0.06 ng/mL (<0.06)
--- NOTE | 2019-07-14 07:43 | NUR ---
REPORT PASSED ON TO THE ONCOMING NURSE, PT LAYING IN BED WITH NO DISTRESS NOTED, CONSULTS CALLED
--- NOTE | 2019-07-14 18:50 | NUR ---
PT CARE ASSUMED AT SHIFT CHANGE. PT ASSESSMENTS CHARTED. PT MEDICATION CHARTED. PT HAD A RT MASTECTOMY, AVOID USE OF RT ARM. US ABDOMEN COMPLETE. PT COMPLAINED OF LT LEG PAIN AND REQUESTED TO SIT IN CHAIR. PT HAS POOR APPETITE.
[2019-07-15 05:06] VITALS: BP 107/80
[2019-07-15 05:27] LABS: ALBUMIN 2.6 g/dL (3.4-5.0); ANION GAP 15 mmol/L (7-16); BUN 61 mg/dL (7-18); CALCIUM 8.8 mg/dL (8.5-10.1); CHLORIDE 102 mmol/L (98-107); CO2 19 mmol/L (21-32); CREATININE 2.8 mg/dL (0.6-1.0); GLUCOSE 110 mg/dL (74-106); PHOSPHORUS 4.4 mg/dL (2.5-4.9); POTASSIUM 4.1 mmol/L (3.5-5.1); SODIUM 136 mmol/L (136-145); TROPONIN-I <0.06 ng/mL (<0.06)
--- NOTE | 2019-07-15 07:55 | NUR ---
ASSUMED PT CARE AT 1900, PT IS AWAKE, A&OX3, ASSESSMENTS CHARTED, COMPLAINED OF ABDOMIANL PAIN, TYL GIVENX1, NO FURTHER COMPLAINS, 100CC FROM THE [place] ALL SHIFT, BLADDER SCAN WITH ONLY 2ML IN, AFIB WITH BBB ON THE MONITOR, RESTED WELL
[2019-07-15 08:30] VITALS: BP 100/81
--- NOTE | 2019-07-15 10:00 | 2DMMODE ---
[facility] [address] [place] [address] 2 D/M-MODE ECHOCARDIOGRAM Name: INDIA MARTINEZ Room #: 218-P ADM IN M.R.#: [id number] Admission: 07/13/19 Attend Phys: Kevyn Bobo MD Discharge: Date of : 45 Report #: [id number] THIS REPORT FOR: cc: [facility] - Clinic physician unknown [facility] - Clinic physician unknown Shahid Fabian MD ~ APPROVED REPORT Study performed: 07/15/2019 09:14:25 EXAM: Comprehensive 2D, Doppler, and color-flow Echocardiogram Patient Location: Bedside Room #: 218 Status: routine BSA: 2.09 HR: 100 bpm BP: 107/80 mmHg Rhythm: Atrial Fibrillation Other Information Study Quality: Good/no patient participation. Indications Congestive Heart Failure Hx: CAD, stent, Afib, CHF, cardiomypathy, HTN. 2D Dimensions RVDd: 43.75 mm IVSd: 10.30 (7-11mm) LVOT Diam: 19.31 (18-24mm) LVDd: 58.75 mm PWd: 9.76 (7-11mm) Ascending Ao: 35.70 (22-36mm) LVDs: 52.28 (25-40mm) Aortic Root: 33.55 mm Volumes Left Atrial Volume (Systole) Single Plane 4CH: 86.27 mL Single Plane 2CH: 96.72 mL LA ESV Index: 46.00 mL/m2 Aortic Valve AoV Peak Jung.: 1.07 m/s AO Peak Gr.: 8.24 mmHg LVOT Max P.33 mmHg LVOT Max V: 0.76 m/s MARYLU Vmax: 2.06 cm2 [facility] [address] [place] [address] 2 D/M-MODE ECHOCARDIOGRAM Name: INDIA MARTINEZ Room #: 218-P ADM IN ..#: [id number] Admission: 07/13/19 Attend Phys: Suzy Godoy Discharge: Date of : 45 Report #: [id number] Mitral Valve MV Decel. Time: 211.03 ms MV E Max Jung.: 1.09 m/s Pulmonary Valve PV Peak Jung.: 0.57 m/s PV Peak Gr.: 1.31 mmHg Tricuspid Valve TR Peak Jung.: 2.90 m/s RAP Estimate: 15.00 mmHg TR Peak Gr.: 33.00 mmHg PA Pressure: 48.00 mmHg Left Ventricle Left ventricle is mildly dilated. Global hypokinesis superimposed with segmental There is normal left ventricular wall thickness. Left ventricular systolic function is severely decreased. LVEF is 25%. This study is not technically sufficient to allow evaluation of the LV diastolic function due to atrial fibrillation. Right Ventricle Right ventricle is mildly dilated. Right ventricle is moderately hypokinetic. Atria Left atrium is severely dilated. Right atrium is severely dilated. Aortic Valve Aortic valve leaflets are mildly thickened and calcified. Mild aortic regurgitation. There is no aortic valvular stenosis. Mitral Valve The mitral valve is normal in structure. Mild mitral annular calcification. Moderate mitral regurgitation. No evidence of mitral valve stenosis. Tricuspid Valve The tricuspid valve is normal in structure. Moderate to severe tricuspid regurgitation. Estimated PAP is 45-50mmHg. Pulmonic Valve The pulmonary valve is normal in structure. Mild pulmonic regurgitation. Great Vessels [facility] [address] [place] [address] 2 D/M-MODE ECHOCARDIOGRAM Name: INDIA MARTINEZ EDROY Room #: [address] [place] [address] IN M.R.#: [id number] Admission: 07/13/19 Attend Phys: Suzy Godoy Discharge: Date of : 45 Report #: [id number] The aortic root is normal in size. The ascending aorta is normal in size. IVC is dilated and collapses <50% with inspiration. Pericardium There is no pericardial effusion. <Conclusion> Left ventricle is mildly dilated. LVEF is 25%. Global hypokinesis superimposed with segmental Right ventricle is mildly dilated. Right ventricle is moderately hypokinetic. Left atrium is severely dilated. Right atrium is severely dilated. Aortic valve leaflets are mildly thickened and calcified. Mild aortic regurgitation. The mitral valve is normal in structure. Mild mitral annular calcification. Moderate mitral regurgitation. The tricuspid valve is normal in structure. Moderate to severe tricuspid regurgitation. Estimated PAP is 45-50mmHg. The pulmonary valve is normal in structure. Mild pulmonic regurgitation. There is no pericardial effusion. <ELECTRONICALLY SIGNED> By: Shahid Fabian MD 07/15/1958 7 7 Shahid Fabian MD /INF
[2019-07-15 13:59] VITALS: BP 100/81
--- NOTE | 2019-07-15 16:52 | NUR ---
Sp with patient via phone. She reports she lives with family and agreeable to casemgt calling dtr for assessment. patient sounded weak on phone. Sp with dtr Saray. patient resides at home with family. Dtr reports multiple steps to home they call [employer] to assist inside. Once inside the home all needs on one level. Patient uses a walker in home. She has standard walker, rolator walker and cane. Discussed with dtr dc planning. Patient has been at [facility] in the past. Dtr agreeable to referral to [facility]. Casemgt following.
[2019-07-15 17:33] VITALS: BP 115/80
--- NOTE | 2019-07-15 17:37 | NUR ---
ASSUMED CARE OF PT AT SHIFT CHANGE. ASSESSMENTS CHARTED. MEDS GIVEN PER MAY. PT A&OX4, BUT FORGETFUL. PT C/O PAIN -10/27, TREATED WITH PO MEDS WITH PARTIAL RELIEF. NO C/O SOA, ON RA. PLAN TO CONTINUE TO DIURESE, REST AND AVOID NEPHROTOXIC MEDS. WILL CONTINUE TO MONITOR AND FOLLOW POC.
[2019-07-15 20:48] VITALS: BP 112/82
[2019-07-16 05:06] VITALS: BP 110/97
[2019-07-16 05:51] LABS: ALBUMIN 2.7 g/dL (3.4-5.0); CALCIUM 8.9 mg/dL (8.5-10.1); CREATININE 2.8 mg/dL (0.6-1.0)
--- NOTE | 2019-07-16 06:00 | NUR ---
pt resting quietly in bed, repositioned q 2hrs nd prn, denies pain, burroughs with low out put 200 for the noc, family called and up dated on pts condition, vss, will con't to monitor per ppoc.
[2019-07-16 08:00] VITALS: BP 97/80
--- NOTE | 2019-07-16 09:53 | NUR ---
[facility] SPOKE WITH COLTON IN ADM SHE RECEIVED REFERRAL AND WILL BE ABLE TO ACCEPT AT DC. DP TO FOLLOW.
[2019-07-16 12:00] VITALS: BP 109/80
--- NOTE | 2019-07-16 13:09 | NUR ---
[facility] is accepting for post acute care clinically. Updated dtr. [facility] in process of obtaining auth for skilled.
[2019-07-16 16:00] VITALS: BP 139/86
--- NOTE | 2019-07-16 17:06 | NUR ---
ASSESSMENT CHARTED. PT ALERT AND ORIENTED. VSS. PRN PAIN MED GIVEN WITH PARTIAL RELIEF. REPORT NOT FEELING WELL TODAY. NEW ORDERS NOTED. FAMILY UPDATED ON PT'S PROGRESS. FALL PRECAUTION IN PLACE. WILL CONTINUE TO MONITOR.
[2019-07-16 21:52] VITALS: BP 109/84
[2019-07-17 00:47] VITALS: BP 109/84
[2019-07-17 04:45] VITALS: BP 96/67
[2019-07-17 06:02] LABS: ALBUMIN 3.3 g/dL (3.4-5.0); CALCIUM 8.8 mg/dL (8.5-10.1); CREATININE 2.9 mg/dL (0.6-1.0); PHOSPHORUS 4.6 mg/dL (2.5-4.9); POTASSIUM 3.7 mmol/L (3.5-5.1)
--- NOTE | 2019-07-17 07:26 | NUR ---
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
[2019-07-17 07:45] VITALS: BP 108/78
--- NOTE | 2019-07-17 08:42 | NUR ---
REC CARE OF PT AT SHIFT CHANGE, ALERT TO SELF, BDATE, CHILDREN'S NAMES, REPORT STATES FAMILY STATE THIS ISN'T HER USUAL LOC. SHOWED HER THE CALL LIGHT AND DOES RETURN DEMO, INTERMITTENTLY, FREQ CHECKS AND Q2H TURNS. IV REPORTED OFF BEING BLOODY YET FLUSHES, WILL FURTHER ASSESS AND L FOREARM WAS SLIGHTLY EDEMATOUS. 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 KEEPS EYES CLOSED DURING ASSESSMENT AND HAS A TENDENCY TO REPEAT PHRASES, KEEPS THANKING STAFF FOR CARES. WILL CONTINUE TO MONITOR. SEE SEPARATE INTERVENTIONS FOR ASSESSMENTS.
[2019-07-17 11:00] VITALS: BP 103/85
--- NOTE | 2019-07-17 15:49 | NUR ---
Updated dtr no dc today possibly tomorrow.
[2019-07-17 16:40] VITALS: BP 114/78
[2019-07-17 19:45] VITALS: BP 118/91
[2019-07-18 05:15] VITALS: BP 130/88
[2019-07-18 05:25] LABS: ALBUMIN 3.8 g/dL (3.4-5.0); CALCIUM 9.2 mg/dL (8.5-10.1); CREATININE 3.1 mg/dL (0.6-1.0); PHOSPHORUS 4.5 mg/dL (2.5-4.9); POTASSIUM 4.4 mmol/L (3.5-5.1)
[2019-07-18 07:30] VITALS: BP 124/91
[2019-07-18 11:00] VITALS: BP 117/92
[2019-07-18 16:00] VITALS: BP 131/91
--- NOTE | 2019-07-18 19:54 | NUR ---
ASSUMED CARE 0700. ORIENTED X2-3, FORGETFULL AND SLEEPY. EGD COMPLETE C NOT INTERVENTIONS. 2 INCONTINENT LOOSE STOOLS. AFIB ON TELE. FAMILY SPOKE TO PRIMARY NURSE FOR UPDATE. SLOW TO PROGRESS- FALL PRECATIONS IN PLACE. STAFF TO ANTICIPATE NEEDS.
[2019-07-18 20:10] VITALS: BP 128/71
--- NOTE | 2019-07-19 03:03 | NUR ---
PATIENT ASSESSED AND IS ALERT X 2-3. IS VERY FOREGETFUL MOST OF THE SHIFT. LEFT ARM SL SLUSHESD WELL. IS LETHARGIC AT TIMES. NO SKIN ISSUES REFUSED TO TURN UNTIL 0100. HAD A SMALL BM. TELE- SHOWS A-FIB BBB. HR IRREGULAR. HAS EDEMA NOTED TO LOWER LEGS WITH NO SCD. REFUSED HER PAIN MED AT HS. PP 2. LUNGS CTA-DISM. NO PRODUCTIVE CUGH NOTED. HAS VERY LOW OUTPUT. ENCOURGED TO DRINK. IS ON A FLUID RESTRICTION. HOB ELEVATED. ON ROOM AIR. DENIES ANY SOA. LEGS WRAPPED FOR HER LYMPEDEMA.HAS A RIGHT MASTECTOMY. CONT5 PLAN OF CARE. DENIES ANY PAIN.
[2019-07-19 04:45] VITALS: BP 103/72
[2019-07-19 06:09] LABS: ALBUMIN 4.3 g/dL (3.4-5.0); CALCIUM 9.4 mg/dL (8.5-10.1); CREATININE 3.5 mg/dL (0.6-1.0); PHOSPHORUS 4.8 mg/dL (2.5-4.9); POTASSIUM 4.2 mmol/L (3.5-5.1)
[2019-07-19 08:22] VITALS: BP 125/102
[2019-07-19 11:38] VITALS: BP 118/96
[2019-07-19 16:00] VITALS: BP 114/77
--- NOTE | 2019-07-19 16:00 | NUR ---
No weekend dc anticipated. [facility] updated. They will need a new insurance auth if ready on Monday. Pt with worsening cre, poor po intake and possible PIPDA scan. Will follow.
--- NOTE | 2019-07-19 16:48 | NUR ---
ASSUMED CARE 0700. ORIENTED X3 FORGETFULL, SLEEPYNG. PPIDA PLANNED FOR MONDAY WILL BE NPO ON MONDAY C NO NARCOTICS 12HR PRIOR. LOOSE STOOL TODAY. CREATINE NOT IMPORVING <100 CC IN [place]. MORE TALKATIVE TODAY. QTURNS TOLERATED. WILL DC TO SKILLED CARE. FALL PRECAUTIONS IN PLACE. STAFF TO ANTICIPATED PT'S NEEDS.
[2019-07-19 19:22] VITALS: BP 104/84
[2019-07-20 03:08] VITALS: BP 117/88
[2019-07-20 05:36] LABS: ALBUMIN 4.5 g/dL (3.4-5.0); CALCIUM 9.6 mg/dL (8.5-10.1); CREATININE 3.9 mg/dL (0.6-1.0); PHOSPHORUS 4.8 mg/dL (2.5-4.9); POTASSIUM 4.5 mmol/L (3.5-5.1)
--- NOTE | 2019-07-20 05:45 | NUR ---
ASSUMED CARE 190. PT A0X1. MORE CONFUSED THAN PREVIOUSLY REPORTED. LASIX GIVEN YESTERDAY AT SHIFT CHANGE. NO URINE OUTPUT FOR THE WHOLE NIGHT. PT WAS C/O URGE TO URINATE. BLADDER SCAN SHOWS 76CC RETENTION. [place] CATHETER CHANGED. STILL NO OUTPUT OUTPUT. PT VSS. DENIES PAIN, BUT LOOKS UNCOMFORTABLE. UNABLE TO CLEARLY VOICE HER CONCERNS. UPDATED THIS MORNING ABOUT PT CONDITION. WILL CONTINUE WITH POC.
[2019-07-20 07:30] VITALS: BP 115/94
[2019-07-20 11:15] VITALS: BP 116/88
[2019-07-20 13:39] LABS: BE(vivo) -6.8 mmol/L (-2 to +3); HCO3 15.7 mmol/L (22.0-26.0); PCO2 24.6 mmHg (35.0-45.0); pH 7.424 (7.360-7.450); sO2 96.4 % (92.0-98.0)
[2019-07-20 16:50] VITALS: BP 114/88
--- NOTE | 2019-07-20 19:45 | NUR ---
ASSUMED CARE 0700. LETHARGIC, SLEEPY, PERIODS OF ALERTNESS. NOT PROGRESSING. SCANT URINE OUTPUT WITH IV LASIX. DR GOMEZ SPOKE WITH FAMILY ON KINDEY PROGNOSIS STOPPED LASIX AND ALBUMIN. DR BORJAS CHANGE CODE TO DNR AND PUT IN COMFORT MEDS. DAUGHTERS MAKEDA AND STELLA GIVEN PERMISSION TO VISIT PATIENT. STAFF TO ANTICIPATE NEEDS. FALL PRECATIONS IN PLACE.
[2019-07-20 20:01] VITALS: BP 120/93
--- NOTE | 2019-07-21 03:44 | NUR ---
Pt. rested quietly at intervals during the night when checked on during frequent rounds. She was given po ativan (see emar) for restlessness with some relief. Denies pain when asked. Turned and repositioned. Bed alarm is on.
[2019-07-21 05:30] VITALS: BP 114/86
[2019-07-21 06:49] LABS: ALBUMIN 4.6 g/dL (3.4-5.0); CALCIUM 9.5 mg/dL (8.5-10.1); CREATININE 4.4 mg/dL (0.6-1.0); POTASSIUM 4.5 mmol/L (3.5-5.1)
[2019-07-21 07:45] VITALS: BP 144/89
[2019-07-21 11:00] VITALS: BP 126/92
[2019-07-21 16:30] VITALS: BP 128/93
--- NOTE | 2019-07-21 18:14 | NUR ---
ASSESSMENT CHARTED, VSS, AND AFEBRILE. Q2 POSITIONED NEEDED FOR COMFORT, FAMILY AT BEDSIDE ALL CONCERNS AND QUESTIONS ANSWERED. AND WILL CONTINUE WITH POC.
[2019-07-21 19:56] VITALS: BP 120/93
--- NOTE | 2019-07-22 04:33 | NUR ---
ASSUMED PATIENT CARE AT 1845. VITAL SIGNS STABLE. PATIENT ALERT AND ORIENTED TO SELF ONLY. AFTER LENGTHY CONVERSATION WITH PATIENTS DAUGHTER ORDER RECEIVED FOR PALLIATIVE CARE CONSULT. COMFORT ORDERS RECEIVED FROM PROVIDER. 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 PATIENT IS RESTING COMFORTABLY.
[2019-07-22 08:00] VITALS: BP 115/83
--- NOTE | 2019-07-22 13:39 | NUR ---
ASSUMED CARE AT SHIFT CHANGE, VSS AND PATIENT LOOKS COMFORTABLE, Q2 TURNED FOR COMFORT AND NEEDED. NO PAIN MEDS GIVEN AT THIS TIME. SPOKE WITH BOTH DAUGHTERS AND CONCEREND FUNMILAYOD ADDRESSED. AND WILL CONTINUE WITH POC.
--- NOTE | 2019-07-22 13:42 | NUR ---
EMR reviewed, comfort measures in place. Will defer nutrition evaluation.
--- NOTE | 2019-07-22 16:04 | NUR ---
Patient with worsening condition. Transferred to comfort care. Sp with dtr Saray regarding hospice care. Reviewed hospice at facility, at home and hospice house. Reviewed many hospice agencies. Referral to Hospice. Sp with dtr who reports they have not rec call from Hospice. Sp with Hospcie who will call family however they cannot admit the patient this evening. No admit RN avail. Updated family who requested referral to [facility]. Referral to [facility] who will call family and rec clinical from RN. Possible dc home this evening with hospice services.
--- NOTE | 2019-07-22 16:08 | NUR ---
FAXED REFERRAL TO [facility] SPOKE WITH FRANCO IN INTAKE SHE CAN ACCEPT AND HAS SPOKEN WITH DTR (STELLA) AND THEY ARE ORDERING EQUIPMENT AND REQUESTING THAT TRANSPORT BE ARRANGED FOR 3197-1137. SPOKE WITH VINNY ROMEO AND SHE WILL ARRANGE AMBULANCE TRANSPORT AND HAVE DC ORDERS FINALIZED.
[2019-07-22 16:15] VITALS: BP 115/83
[2019-07-22] MEDS ORDERED: MORPHINE S10 MG/5 M2 SUBLING (16:55)
[2019-07-22] MEDS ORDERED: LORAZEPAM0.5 MG/1 M SUBQ (16:55)
--- NOTE | 2019-07-22 17:08 | NUR ---
PT DISCHARGING TODAY TO HOME WITH [facility] FAXED DC ORDERS/SUMMARY RECEIVED CONFIRMATION. SPOKE WITH FRANCO IN INTAKE THEY ARE ARRANGING EQUIPMENT TO BE SENT OVER TO PT'S HOME WHERE SHE IS DISCHARGING TO. AMBULANCE TRANSPORTATION ARRANGED FOR 1800 TODAY. PT'S DTR (STELLA) NOTIFIED OF DC AND TIME OF TRANSPORT AND DNR FORM WITH AMBULANCE FORM AT [facility].
--- NOTE | 2019-07-22 18:14 | NUR ---
ASSUMED CARE THIS AM, PATIENT VSS AND AFIB ON THE MONITOR. ASSESSMENT CHARTED. REPORT GIVEN TO SHARRON RN, AND COPY OF DISCHARGED AND MEDICATION INSTRUCTION GIVEN TO PATIENT'S DAUGHTER. PATIENT DISCHARGED HOME WITH HOSPICE.
== END 2019-07-22 18:18 | disposition hospice, home (50) | DRG 291 ==
LOC: ER 21:49 → 2N 23:46 → EROBS 23:46 → 2N 07-14 00:23
PROVIDERS: Emergency Medicine; Hospitalist; Nurse Practitioner Family; ADMIT Hospitalist
PROC: 0DJ08ZZ Inspection of Upper Intestinal Tract, Via Natural or Artificial Opening Endoscopic (ICD-10-PCS; principal; 2019-07-18)
DX: I13.0 Hypertensive heart and chronic kidney disease with heart failure and stage 1 through stage 4 chronic kidney disease, or unspecified chronic kidney disease (principal); I50.23 Acute on chronic systolic (congestive) heart failure; G93.41 Metabolic encephalopathy; N17.9 Acute kidney failure, unspecified; E44.0 Moderate protein-calorie malnutrition; R18.8 Other ascites; E44.1 Mild protein-calorie malnutrition; I48.21 Permanent atrial fibrillation; E87.2 Acidosis; E87.1 Hypo-osmolality and hyponatremia; Z68.41 Body mass index [BMI] 40.0-44.9, adult; N18.3 Chronic kidney disease, stage 3 (moderate); E66.01 Morbid (severe) obesity due to excess calories; I71.2 Thoracic aortic aneurysm, without rupture; E78.5 Hyperlipidemia, unspecified; K21.9 Gastro-esophageal reflux disease without esophagitis; F32.9 Major depressive disorder, single episode, unspecified; I25.5 Ischemic cardiomyopathy; I25.10 Atherosclerotic heart disease of native coronary artery without angina pectoris; I27.21 Secondary pulmonary arterial hypertension; M54.5 Low back pain; M81.0 Age-related osteoporosis without current pathological fracture; I07.1 Rheumatic tricuspid insufficiency; R06.00 Dyspnea, unspecified; Z51.5 Encounter for palliative care; K59.00 Constipation, unspecified; D53.9 Nutritional anemia, unspecified; M19.90 Unspecified osteoarthritis, unspecified site; Z96.89 Presence of other specified functional implants; E87.8 Other disorders of electrolyte and fluid balance, not elsewhere classified; Z92.21 Personal history of antineoplastic chemotherapy; Z86.711 Personal history of pulmonary embolism; Z79.01 Long term (current) use of anticoagulants; Z90.11 Acquired absence of right breast and nipple; Z79.899 Other long term (current) drug therapy; Z79.51 Long term (current) use of inhaled steroids; Z87.891 Personal history of nicotine dependence; Z95.5 Presence of coronary angioplasty implant and graft
CPT/HCPCS: 10081; 10194; 62110; 62900; 70005